=== PATIENT | female | born 1950 | race Caucasian/White ===

== ENCOUNTER → 2016-06-19 | Outpatient (CLI) | payer OTHER, MEDICAID | LOC: FIMAGING 08:32 | PROVIDERS: ATTEND Neurological Surgery | DX: Z09 Encounter for follow-up examination after completed treatment for conditions other than malignant neoplasm (principal); Z98.1 Arthrodesis status ==

== ENCOUNTER 2016-08-30 11:58 | Day surgery (SDC) | payer OTHER, MEDICAID ==
[~2016-08-30 11:58] MED LIST: NS 1,000 ML IV SCH
[2016-08-30] MEDS ORDERED: fentaNYL 100 MCG/2 ML INJ ONE (14:05)
[2016-08-30] MEDS ORDERED: MIDAZOLAM 2 MG/2 ML VIAL ONE (14:07)
[2016-08-30] MEDS ORDERED: IOPAMIDOL (ISOVUE-M 300) 15 ML VIAL ONE (14:19)
[2016-08-30] MEDS ORDERED: TRIAMCINOLONE ACETONIDE 200 MG/5 ML MDV IM ONE (14:20)
[2016-08-30] MEDS ORDERED: ONDANSETRON DISINTEGRATING 4 MG TAB PO PRN (15:20)
[2016-08-30] MEDS ORDERED: ONDANSETRON 4 MG/2 ML VIAL IVP PRN (15:21)
== END 2016-08-30 15:45 | disposition home or self-care (01) ==
LOC: FIMAGING 11:58
PROVIDERS: ATTEND Neurological Surgery
DX: M47.12 Other spondylosis with myelopathy, cervical region (principal); M48.02 Spinal stenosis, cervical region; M54.12 Radiculopathy, cervical region; M51.26 Other intervertebral disc displacement, lumbar region; M48.06 Spinal stenosis, lumbar region; M43.26 Fusion of spine, lumbar region; M43.22 Fusion of spine, cervical region
CPT/HCPCS: J2250; J3010; J3301; Q9967

== ENCOUNTER 2017-02-12 11:09 | Inpatient (IN) | payer OTHER, MEDICAID ==
[2017-02-12] MEDS ORDERED: fentaNYL 100 MCG/2 ML INJ IVP ONE (12:03)
--- NOTE | 2017-02-12 12:40 | EDPHY ---
H & P Time Seen by Provider: 02/12/17 12:39 HPI/ROS: Chief complaint. Knee injury HPI. Patient is a 66-year-old female who tripped and fell at home. She was moving her computer from bedroom to the living room and tripped on the rug. She fell striking her left elbow but twisted her right leg. She fell and was unable to get up. Unable to stand. Hurts to move her right leg especially around her right knee. Some right hip pain as well. She denies hitting her head or having any neck pain, chest pain, shortness of breath, abdominal pain. Slight discomfort to her low back. ROS Constitutional. no fever/chills, no weakness Eyes. no problems with vision ENT. no sore throat, no nasal drainage Cardiovascular. no chest pain Respiratory. no shortness of breath, no cough Abdominal. no abdominal pain, no nausea/vomiting, no diarrhea . no problems urinating MS. low back, right hip, right knee pain Skin. no rash Lymph. no swollen glands Neuro. Cannot walk or stand Past Medical/Surgical History: Past medical history significant for [place], hypertension, dyslipidemia, COPD, depression, obesity, neck and back fusion. Social History: Lives alone. Nonsmoker. No alcohol Smoking Status: Former smoker Physical Exam: General Appearance: Alert well-developed female moderate distress vital signs are stable Eyes: Pupils equal and round no pallor or injection. ENT, Mouth: Mucous membranes are moist. Respiratory: There are no retractions, lungs are clear to auscultation. Cardiovascular: Regular rate and rhythm. Gastrointestinal: Abdomen is soft and nontender, no masses, bowel sounds normal. Neurological: Awake and alert, sensory and motor exams grossly normal. Skin: Warm and dry, no rashes. Musculoskeletal: Neck is supple nontender. Extremities pain to palpation both right hip and right knee. Increased pain with gentle range of motion about the right hip. Slight shortening of the right lower extremity with inward rotation. Dorsalis pedis posterior pulses normal. Sensation normal Psychiatric: Patient is oriented X 3, there is no agitation. Constitutional: Initial Vital Signs Temperature (C) 36.5 C 02/12/17 11:12 Heart Rate 63 02/12/17 11:12 Respiratory Rate 14 02/12/17 11:12 Blood Pressure 124/59 H 02/12/17 11:12 O2 Sat (%) 90 L 02/12/17 11:12 O2 Delivery Mode Room Air Allergies/Adverse Reactions: No Known Allergies Allergy (Verified 02/12/17 11:24) Home Medications: Medication Instructions Recorded Hydrochlorothiazide [HCTZ (*)] 25 mg PO DAILY 06/22/14 Lisinopril [Zestril 20 mg (*)] 20 mg PO DAILY 06/22/14 PARoxetine HCL [Paroxetine HCl] 40 mg PO DAILY 06/22/14 metFORMIN HCL [Glucophage 500 mg 500 mg PO DAILY 06/22/14 (*)] GABAPENTIN 600 mg PO TID 08/24/16 Tizanidine HCl 4 mg PO TID 08/24/16 Medical Decision Making - Diagnostics EKG Interpretation: EKG interpreted by me shows normal sinus rhythm normal interval. Left axis deviation with left anterior fascicular block. QRS otherwise normal. No significant ST elevation or depression. No arrhythmia. The rate is 94. Imaging Results: Imaging Impressions Knee X-Ray 02/12/17 11:29 Impression: Comminuted displaced intra-articular fracture of both the medial and lateral tibial plateau, as above. Comminuted fracture proximal fibular head. Moderate suprapatellar joint effusion. Hip X-Ray 02/12/17 11:32 Impression: No definite acute fracture although limited exam. Chest X-Ray 02/12/17 13:02 Impression: No evidence for acute cardiopulmonary abnormality. Extremity CT 02/12/17 13:02 Impression: Comminuted, displaced, and depressed intraarticular fracture of the medial and lateral tibial plateau, as above. X-ray right hip and right knee reviewed by me and the right hip appears normal. We can see hardware on the lumbar spine which appears normal. Right knee shows a comminuted, displaced intra-articular fracture of both the medial and lateral tibial plateau. Also comminuted fracture of the fibular head. Procedures: Re-evaluation at 1:00 p.m.. Patient had a cup of coffee at 6:00 a.m. and no food today. She is advised to remain NPO. IV normal saline. Pain control is adequate currently ED Course/Re-evaluation: On re-evaluation patient is stable and pain is controlled. She and I discussed imaging study results, treatment plan including need for surgery. She expresses understanding and agreement I discussed and consulted the case with Dr. Bay, orthopedics who will see the patient this afternoon. I consulted and discussed the case with Dr. laughlin, hospitalist, who agrees to the admission Patient is placed in a right knee immobilizer. Post splint application shows good anatomic position and distal motor vascular sensitivity to be intact. Differential Diagnosis: I have considered fracture, dislocation of hip and knee. I have also considered injury to the lumbar spine. Patient has closed comminuted tibia and fibula fracture requiring surgery - Data Points Medications Given: Discontinued Medications Fentanyl (Sublimaze) 100 mcg IVP EDNOW ONE Stop: 02/12/17 12:04 Last Admin: 02/12/17 12:06 Dose: 100 mcg Hydromorphone HCl (Dilaudid) 1 mg IVP EDNOW ONE Stop: 02/12/17 13:49 Last Admin: 02/12/17 13:54 Dose: 1 mg Sodium Chloride (Ns) 1,000 mls @ 0 mls/hr IV EDNOW ONE; Wide Open PRN Reason: Protocol Stop: 02/12/17 13:03 Last Admin: 02/12/17 13:55 Dose: 1,000 mls Departure - Departure Disposition: [facility] In[facility] Acute Clinical Impression: Tibial plateau fracture, right Qualifiers: Encounter type: initial encounter Fracture type: closed Qualified Code(s): S82.141A - Displaced bicondylar fracture of right tibia, initial encounter for closed fracture Condition: Good
[2017-02-12] MEDS ORDERED: NS 1,000 ML IV ONE (13:02)
[2017-02-12] MEDS ORDERED: ONDANSETRON DISINTEGRATING 4 MG TAB PO PRN (13:41)
[2017-02-12] MEDS ORDERED: ONDANSETRON 4 MG/2 ML VIAL IVP PRN (13:41)
[2017-02-12] MEDS ORDERED: HYDROmorphONE/DILAUDID 2 MG/ML INJ IVP ONE (13:48)
--- NOTE | 2017-02-12 14:05 | CPEKG ---
Heart Rate: 94 RR Interval: 638 P-R Interval: 160 QRSD Interval: 86 QT Interval: 356 QTC Interval: 446 P Meridian: 30 QRS Meridian: -44 T Wave Meridian: 9 EKG Severity - ABNORMAL ECG - EKG Impression: SINUS RHYTHM EKG Impression: LEFT ANTERIOR FASCICULAR BLOCK EKG Impression: BORDERLINE R WAVE PROGRESSION, ANTERIOR LEADS Electronically Signed By: Jere Barillas 12-Feb-2017 14:43:57
[2017-02-12 14:06] LABS: % IMMATURE GRANULYOCYTES 0.5 % (0.0-1.1); ABSOLUTE IMMATURE GRANULOCYTES 0.08 10^3/uL (0.00-0.10); ADD DIFF? NO; ADD MORPH? NO; ADD SCAN? NO; ATYPICAL LYMPHOCYTE FLAG 0 (0-99); FRAGMENT RBC FLAG 0 (0-99); HEMATOCRIT 40.8 % (38.0-47.0); HEMOGLOBIN 13.8 g/dL (12.6-16.3); LEFT SHIFT FLG 0 (0-99); LIPEMIA HEMOLYSIS FLAG 90 (0-99); MEAN CELL HEMOGLOBIN CONCENTR. 33.8 g/dL (32.4-36.7); MEAN CELL VOLUME 94.7 fL (81.5-99.8); MEAN PLATELET VOLUME 10.3 fL (8.7-11.7); PLATELET CLUMPS FLAG 20 (0-99); PLATELET COUNT 313 10^3/uL (150-400); RED BLOOD CELL COUNT 4.31 10^6/uL (4.18-5.33); RED CELL DISTRIBUTION WIDTH 13.1 % (11.5-15.2)
[2017-02-12 14:15] LABS: INR 0.96 (0.83-1.16)
[2017-02-12 14:20] LABS: ANION GAP 15 mEq/L (8-16); CALCIUM 9.9 mg/dL (8.5-10.4); CARBON DIOXIDE 22 mEq/l (22-31); CHLORIDE 102 mEq/L (97-110); GLOMERULAR FILTRATION RATE 55; GLUCOSE 106 mg/dL (70-100); POTASSIUM 4.3 mEq/L (3.5-5.2); SODIUM 139 mEq/L (134-144)
--- NOTE | 2017-02-12 14:53 | GHP ---
[f rep st] HISTORY AND PHYSICAL DATE OF ADMISSION: 02/12/2017 CHIEF COMPLAINT: Right knee pain as well as bilateral low back pain. HISTORY OF PRESENT ILLNESS: The patient is a 66-year-old female who has a past medical history of IN approximately 6 years ago, hypertension, dyslipidemia, COPD and spinal stenosis; who presented to the emergency room after sustaining a fall while at home. She was moving her computer from her bedroom to the living room and tripped on the rug. She fell, hitting her left elbow, but twisted her right leg and at that time and was unable to get up. She is also complaining of some low back pain and feels best while lying flat. She denies any chest pain, any changes in her vision. She denies any shortness of breath. Her appetite is good. She states that she has had weight gain since having back surgery. She denies any changes in her bowel movements; and denies any frequency, hesitancy, urgency with urination. Her main complaint during my evaluation is right knee pain and then her low back area is aching. PAST MEDICAL HISTORY: 1. History of a myocardial infarction approximately 6-7 years old, that she describes as a small IN. 2. Hypertension. 3. Dyslipidemia. 4. COPD. 5. Depression. 6. Obesity. 7. Spinal stenosis. PAST SURGICAL HISTORY: 1. Cervical fusion in 2004. 2. Low back surgery. FAMILY HISTORY: Mother from cancer at age 66. Father was an alcoholic, he of complications of pneumonia in his 80s. SOCIAL HISTORY: She was a former smoker and she quit 3 years ago. She continues to use Nicorette. She is a former alcoholic, she quit 16 years ago. She is currently not in a relationship. She is retired. 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 ALLERGIES: No known allergies. HOME MEDICATIONS: Metformin 500 mg daily, tizanidine 4 mg p.o. t.i.d., Paxil 40 mg daily, lisinopril 20 mg daily, hydrochlorothiazide 25 mg daily. REVIEW OF SYSTEMS: A 10-point review of system was performed and was negative, other than pertinent positives in HPI and past medical history. PHYSICAL EXAM: GENERAL: Danuta is a 66-year-old obese female, who does not appear to be in acute distress. VITAL SIGNS: Blood pressure is 124/59, heart rate is 63, respiratory rate is 14, O2 sats on room air 90%, temperature is 36.5 Celsius. EYES: Pupils are equal and reactive. EOMs are intact. No conjunctival injection noted. ENT: Normal ears. Hearing intact. NECK: Trachea is midline. CARDIOVASCULAR: She is in a regular rate and rhythm. No murmurs, rubs or gallops noted. She has distant heart sounds. CHEST: Lungs with normal respiratory effort. Clear; without wheezing, rales or rhonchi. Decreased basilar. SKIN: No rashes or ulcers. Warm, dry and intact. MUSCULOSKELETAL: She is unable to do any type of straight leg lifts on the right side. I suspect this is due to knee pain. Right knee is tender, but no increased swelling noted. She has pain to both right hip and right knee area of palpation. She has palpable pulses on both feet. PSYCHIATRIC: She is alert and oriented. Normal mood and affect. Normal judgment and insight. Normal memory. LAB DATA: Reviewed. Chemistry panel is currently pending. Coagulation is pending. CBC shows a white blood cell count of 14.99, hemoglobin of 13.8, hematocrit of 40.8, platelet count of 313. IMAGIN. Knee x-ray shows a comminuted displaced intra-articular fracture of both the medial lateral tibial plateau. She has a comminuted fracture of proximal fibular head, as well as a moderate suprapatellar joint effusion. 2. Hip x-ray shows no acute trauma. 3. Right extremity CT was performed. This showed a comminuted displaced and depressed intra-articular fracture of the medial and lateral tibial plateau. 4. EKG, which I evaluated myself, shows a sinus rhythm with a left anterior fascicular block. ASSESSMENT AND PLAN: 1. Right knee fracture; comminuted, displaced and depressed intra-articular fracture of the medial and lateral tibial plateau. Orthopedics will be called by the emergency room physician. Will make her n.p.o. at this time. ASA classification is a 2 with her obesity and her history of a myocardial infarction. Will check a troponin prior to surgery. Cardiac risk index is low. 2. Back pain due to recent fall. I have already spoken with Neurosurgery. They will evaluate her. 3. Hypertension. Will resume her home medications. 4. COPD. No signs or symptoms of exacerbation. Will need good pulmonary toileting in the post operative setting. 5. Depression. Resume Paxil. 6. Obesity. She realizes this is impacting her health. 8. Leukocytosis. Most likely an acute reaction. Will recheck labs in the morning. 9. Deep venous thrombosis prophylaxis. At this time, we will not initiate any type of medication. This can be addressed after surgery. Will order athrombic pumps. 10. Code status: Do not resuscitate. 11. Length of stay: I suspect she will require greater than a 2-midnight stay with an injury to her right knee and to her back area. /[id number]/MODL MTDD
[2017-02-12] MEDS ORDERED: LR 1,000 ML IV SCH (15:00)
[2017-02-12] MEDS ORDERED: HYDROmorphONE/DILAUDID 1 MG/ML INJ ONE (15:49)
[2017-02-12] MEDS ORDERED: HYDROmorphONE/DILAUDID 1 MG/ML INJ IVP ONE (15:51)
--- NOTE | 2017-02-12 15:52 | SOAPPROG ---
ODETTE Progress Note Assessment/Plan: Assessment: Seen and examined agree with dictation by Susan HAM Plan: 02/12/17 15:51 Objective: Vital Signs Temp Pulse Resp BP Pulse Ox 36.5 C 78 14 94/58 L 95 02/12/17 11:12 02/12/17 14:41 02/12/17 14:41 02/12/17 14:41 02/12/17 14:41 Laboratory Results 02/12/17 13:50 02/12/17 13:50 PT 13.0 SEC (12.0-15.0) 02/12/17 13:50 INR 0.96 (0.83-1.16) 02/12/17 13:50 ICD10 Worksheet Patient Problems: Problems Problem Status Onset Tibial plateau fracture, right Acute Lumbar degenerative disc disease Acute Arthrodesis status Chronic Cervical radiculitis Chronic
[2017-02-12] MEDS: HYDROmorphone HCL/NS/PF 0.4 MG/2 ML SYR IVP PRN ×2 (17:18→23:27)
[2017-02-12] MEDS: fentaNYL 100 MCG/2 ML INJ IVP PRN ×9 (18:13→22:16)
[2017-02-12] MEDS ORDERED: BUPIVACAINE 0.5% 30 ML SDV ONE (19:11)
[2017-02-12] MEDS ORDERED: BACITRACIN 50,000 UNITS/10 ML SYR IRR ONE (19:12)
[2017-02-12] MEDS ORDERED: POLYMYXIN B SULFATE 500,000 UNIT/10 ML SYR IRR ONE (19:12)
--- NOTE | 2017-02-12 19:19 | SOAPPROG ---
SOAP Progress Note Assessment/Plan: Assessment: Closed, R tibial plateau fx. Plan: To OR HAM this PM for spanning ex fix and CR. Keep NPO, ice/elevate, SCD/AGA LLE, bedrest. Cleared by med/Nsurg for surgery. Consented. See full dictation of ortho consult (done ~3pm), by ROSIE Sumner, which is currently delayed in the dictation process. Pt was seen with me upon consult request. Call has been placed to [employer]. 02/12/17 19:19 Subjective: Mechanical fall earlier today. Brought in to [facility] ER, unable to bear wt on RLE, c/o severe pain R knee. No n/t, no other significant known injuries. Objective: Vital Signs Temp Pulse Resp BP Pulse Ox 37.0 C 95 18 81/60 L 90 L 02/12/17 17:45 02/12/17 17:45 02/12/17 17:45 02/12/17 17:45 02/12/17 17:45 Laboratory Results 02/12/17 13:50 02/12/17 13:50 02/11/17 02/12/17 02/13/17 05:59 05:59 05:59 Output Total 250 Balance -250 PT 13.0 SEC (12.0-15.0) 02/12/17 13:50 INR 0.96 (0.83-1.16) 02/12/17 13:50 R knee with edema, calor, ecchymosis, no erythema. Comp's compressible, skin intact, no pain with active/passive stretch. DNVI BLEs. XR - comminuted, displaced bicondylar (Jeff V) tibial plateau fracture. ICD10 Worksheet Patient Problems: Problems Problem Status Onset Tibial plateau fracture, right Acute Lumbar degenerative disc disease Acute Arthrodesis status Chronic Cervical radiculitis Chronic
[2017-02-12] MEDS ORDERED: MIDAZOLAM 2 MG/2 ML VIAL IVP ONE (19:30)
[2017-02-12] MEDS ORDERED: ceFAZolin 2 GM/SWFI 2 GM/20 ML SYR IVP ONE (19:30)
[2017-02-12] MEDS ORDERED: ceFAZolin 2 GM/DEXTROSE 100 ML IV SCH (19:30)
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
[2017-02-12] MEDS ORDERED: PROPOFOL/EMULSION 500 MG/50 ML BOTTLE IV ONE (19:35)
[2017-02-12] MEDS ORDERED: fentaNYL 250 MCG/5 ML INJ ONE (19:40)
[2017-02-12] MEDS ORDERED: MIDAZOLAM 2 MG/2 ML VIAL ONE (20:36)
[2017-02-12] MEDS ORDERED: OXYCODONE/APAP 5/325 TAB PO PRN (21:04)
--- NOTE | 2017-02-12 21:16 | POSTOPPROG ---
Post Op Note Date of Operation: 02/12/17 Surgeon: Fletcher Bay Executive Kitchen Manager: Therese Solorzano PA-C Anesthesia: GET(General Endotracheal) Pre-op Diagnosis: right knee medial and lateral tibia plateau fracture Post-op Diagnosis: right knee medial and lateral tibia plateau fracture Indication: unstable fracture Procedure: ex-fix placement for right knee medial and lateral tibia plateau fracture Findings: right knee medial and lateral tibia plateau fracture Inf/Abcess present in the surg proc area at time of surgery?: No EBL: Minimal Complications: none Specimen(s): none
[2017-02-12] MEDS ORDERED: NALOXONE HCL 0.4 MG/ML INJ IVP PRN (21:20)
[2017-02-12] MEDS ORDERED: PROMETHAZINE HCL 25 MG/ML INJ IVP PRN (21:20)
[2017-02-12] MEDS ORDERED: ALBUTEROL 3 ML DEYVIAL IH PRN (21:20)
--- NOTE | 2017-02-12 21:21 | POSTANESTH ---
Post Anesthetic Evaluation Cardiovascular Status: Normal, Stable Respiratory Status: Similar to Pre-op Cond. Level of Consciousness/Mental Status: Can Participate in Eval Pain Control: Adequate, Prn Tx Ordered Nausea/Vomiting Control: Adequate, Prn Tx Ordered Complications Possibly Related to Anesthesia: None Noted
[2017-02-12] MEDS ORDERED: fentaNYL 100 MCG/2 ML INJ ONE ×2 (21:24→21:43)
[2017-02-12] MEDS: GABAPENTIN 300 MG CAP PO SCH (23:18)
[2017-02-12] MEDS: OXYCODONE/APAP 5/325 TAB PO PRN (23:18)
--- NOTE | 2017-02-13 01:19 | GCON ---
[f rep st] CONSULTATION CONSULTATION/HISTORY AND PHYSICAL DATE OF CONSULTATION: 02/12/2017 CHIEF COMPLAINTS: 1. Fall. 2. Right knee injury. 3. Low back pain with history of lumbar fusion. Patient was seen in the emergency department in room 25 on 02/12/2017 at 1408. HISTORY OF PRESENT ILLNESS: The patient is a 66-year-old female, who is known to our practice for both cervical and lumbar fusion. Today she was at home when she was trying to put her computer back on a table, she tripped and fell. She was moving her computer from a bedroom to a living room. She tripped on a rug. She fell, striking her left elbow and twisting her right leg. She fell and was unable to get up. She was able to crawl across the floor and get to her phone and called 911. She was brought into the emergency department for evaluation. She was complaining of some achiness in her lower back. She had some right hip pain as well as right knee pain. She denies striking her head. She has no neck pain. No chest pain. No shortness of breath. No abdominal complaints. She denies any radicular symptoms in her left leg. She has isolated left knee pain that radiates to the mid thigh and down to the mid calf. She has no numbness or tingling in her toes. No loss of bowel or bladder control. No saddle numbness. No numbness in her groin. REVIEW OF SYSTEMS: 10-point review of systems done in conjunction with above, noted for the following: No headache. No diplopia. No blurred vision. No loss of visual field. No hearing loss, tinnitus, or vertigo. PULMONARY: No cough, sputum production, hemoptysis, dyspnea, or pleuritic chest pain. CARDIAC : No chest pain or pressure. No palpitations. GI: No weight loss or gain. No nausea, vomiting, or diarrhea. : No dysuria or hematuria, nocturnal frequency or urgency. NEURO: Patient denies any dizziness, syncope, seizures, vertigo, paresthesias, or weakness. No psychiatric. No suicidality or homicidality. PAST MEDICAL HISTORY: Significant for the followin. NM. 2. Hypertension. 3. Dyslipidemia. 4. COPD. 5. Depression. 6. Obesity. 7. Cervical and lumbar spine fusion with Dr. Reed. PAST SURGICAL HISTORY: See above. MEDICATIONS: Please see med reconciliation form. Prior medications listed per report from the emergency department show hydrochlorothiazide 25 mg p.o. daily, Zestril 20 mg p.o. daily, paroxetine 40 mg p.o. daily, metformin 500 mg p.o. daily, gabapentin 600 mg p.o. t.i.d., tizanidine 4 mg p.o. t.i.d. ALLERGIES: No known drug allergies. FAMILY HISTORY: Reviewed and noncontributory. SOCIAL HISTORY: Patient lives alone. She is a nonsmoker. No alcohol use. No risk factors for HIV or AIDS. IMMUNIZATIONS: Up-to-date. TRAVEL: No recent travel. REVIEW OF SYSTEMS: Noted above. PHYSICAL EXAMINATION: GENERAL: This is an awake, alert, oriented female, in no acute distress. VITAL SIGNS: Most recent, temperature 36.5, heart rate 63, 14 respirations, 124/59 blood pressure, and O2 sat of 90% on room air. HEENT: Head is normocephalic, atraumatic. Pupils equal, round, reactive to light. EOMIs intact. Full visual hong by confrontation. Ears are patent. Nose is patent. NECK: Soft and supple. No midline tenderness. Full range of motion in flexion, extension, lateral bending, rotation. RESPIRATORY AND CARDIAC: Deferred. ABDOMEN: Soft, nontender. No peritoneal signs. AND RECTAL: Deferred. NEURO: Patient is awake, alert, oriented to name, place, location, date, time, and situation. Memory is intact to immediate, past, and current events. Speech: No aphasia dysarthria or dysphonia. Cranial nerves 2 through 12 grossly intact. 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 Right side she has 5/5 strength with plantar flexion, dorsiflexion, and EHL. Knee extension, knee flexion, and iliopsoas was not tested due to nature of comminuted tibia fracture of the right leg. Sensation is grossly intact to light touch throughout all dermatome distributions upper and lower extremities. Reflexes of the biceps and triceps, as well as left Achilles and patellar were 2+ out of 4, right Achilles was 2+, left patellar was not tested due to nature of injury. Her compartments are soft bilaterally. She has no numbness or tingling. She has good sensation and her color is good with cap refill less than 2 seconds in bilateral lower extremities. DIAGNOSTIC STUDIES: Knee x-rays as well as extremity CT of the right knee shows a comminuted, displaced, depressed, intra-articular fracture of medial and lateral tibial plateau. X-rays of the right hip and right knee showed no fracture of the hip itself. Pending x-rays of the lumbar spine. IMPRESSION: 1. Fall with comminuted right tibial plateau fracture, proximal fibula fracture. 2. Achy low back pain, mild in nature, with history of lumbar fusion. 3. History of cervical fusion with no neck pain or upper extremity symptoms. PLAN AND DISCUSSION: The patient is a 66-year-old female who tripped and fell, suffered a comminuted tibial plateau fracture. She was seen in the emergency department at 1408 by myself and neurosurgical services. We ordered some x- rays of the lumbar spine. Attempt to get those today. She has no radicular pain in the left leg. Her pain is isolated to her right knee. She has no numbness, tingling in the distal foot or weakness. Her compartments at this time are soft. Orthopedics was evaluating the patient as well, and likely the patient will need surgery, possibly an external fixation. Will leave this up to Dr. Bay and his team. We will order some x-rays of the lumbar spine to check her postop fusion, and will continue to follow her. All questions and concerns were answered. Patient understands and agrees. /[id number]/MODL MTDD
[2017-02-13] MEDS: OXYCODONE/APAP 5/325 TAB PO PRN ×2 (03:35→14:06)
[2017-02-13] MEDS: ceFAZolin 2 GM/DEXTROSE 100 ML IV SCH ×2 (03:35→12:11)
[2017-02-13] MEDS: HYDROmorphone HCL/NS/PF 0.4 MG/2 ML SYR IVP PRN ×2 (05:32→12:55)
[2017-02-13 05:52] LABS: % IMMATURE GRANULYOCYTES 0.4 % (0.0-1.1); ABSOLUTE IMMATURE GRANULOCYTES 0.04 10^3/uL (0.00-0.10); ADD DIFF? NO; ADD MORPH? NO; ADD SCAN? NO; ATYPICAL LYMPHOCYTE FLAG 0 (0-99); FRAGMENT RBC FLAG 0 (0-99); HEMATOCRIT 33.5 % (38.0-47.0); HEMOGLOBIN 10.8 g/dL (12.6-16.3); LEFT SHIFT FLG 0 (0-99); LIPEMIA HEMOLYSIS FLAG 80 (0-99); MEAN CELL HEMOGLOBIN 31.2 pg (27.9-34.1); MEAN CELL HEMOGLOBIN CONCENTR. 32.2 g/dL (32.4-36.7); MEAN CELL VOLUME 96.8 fL (81.5-99.8); MEAN PLATELET VOLUME 10.5 fL (8.7-11.7); PLATELET CLUMPS FLAG 10 (0-99); PLATELET COUNT 258 10^3/uL (150-400); RED BLOOD CELL COUNT 3.46 10^6/uL (4.18-5.33); RED CELL DISTRIBUTION WIDTH 13.4 % (11.5-15.2)
--- NOTE | 2017-02-13 05:56 | GCON ---
[f rep st] CONSULTATION CHIEF COMPLAINT: Right knee injury. HISTORY OF PRESENT ILLNESS: The patient is a 66-year-old female who was moving her computer from her bedroom to her living room and tripped on a rug and fell, landing on her right knee. She states that she was unable to get up and had to crawl to her phone. She states that she has significant pain in her right knee with inability to flex or extend her knee. She also notes some right hip pain on the outside of her right side and also initially fell on her left elbow that is asymptomatic at this time. Patient does have a history of cervical and lumbar fusions done in 2014. She states that she does have slight discomfort in her lower back, no numbness or tingling in either upper or lower extremity. No other known injuries. Last PO was coffee at 6am. PAST MEDICAL HISTORY: History of IL about 6-7 years ago, hypertension, dyslipidemia, COPD, depression, morbid obesity, spinal stenosis. PAST SURGICAL HISTORY: Cervical fusion done in June 2014 and lumbar fusion done in October 2014. MEDICATIONS: Metformin 700 mg daily, HCTZ 25 mg daily, lisinopril 20 mg daily, paroxetine 40 mg daily, gabapentin 600 mg 3 times a day, and tizanidine 4 mg 3 times a day. ALLERGIES: No known drug allergies. FAMILY HISTORY: Mother from cancer at 66. Father was an alcoholic and of complications of pneumonia in 1979. SOCIAL HISTORY: She was a former cigarette smoker and quit about 3 years ago. She continues to use Nicorette. She was a former alcoholic and quit about 16 years ago. 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 REVIEW OF SYSTEMS: A 10-point review was performed and negative for any other complaints, concerns or history. PHYSICAL EXAMINATION: GENERAL: Pleasant, NAD. HEENT: NC/AT, EOMI, PERRLA. Ears and nares patent without discharge. Oropharynx is clear. NECK: Nontender to palpation, full range of motion without pain. Negative Lhermitte' s and Spurling's. MUSCULOSKELETAL: On exam of the right lower extremity, there is significant edema present throughout the right knee and into her right proximal calf and lower leg. There is no erythema, ecchymosis, or color present. She does have tenderness to palpation over the medial and lateral aspect of her proximal tibia. Her calf is compressible and nontender to palpation. No pain with passive stretch. Negative Homans. She has normal sensation to light touch in the right lower extremity, ankle DF/PF and toe wiggle intact. Distal pulse present in the right lower extremity. DNVI BLEs. SKIN: Warm and dry, intact. NEUROLOGIC: Nonfocal. No deficits noted. C5-T1 and L2-S1 intact. DTRs 1+ BUE's, deferred on BLE's. PSYCHIATRIC: Alert and oriented x3. Appropriate mood and affect. RADIOGRAPH: X-rays and a CT scan of the right knee were done and show a comminuted, displaced and depressed intra-articular fracture of the medial and lateral tibial plateau (Schatzker V). IMPRESSION: Right knee closed medial and lateral tibial plateau fractures, no sign of compartment syndrome at this time. PLAN: Patient was seen and examined in conjunction with Dr Bay. Dr Bay has recommended provisional stabilization and reduction with a spanning ex fix on her right lower extremity to stabilize the tibial plateau fracture. Risks, benefits, and alternatives were explained to the patient and consent was obtained by Dr. Bay to go forward with this operation on her right lower extremity as soon as she is cleared by medicine for surgery. Continue NPO. Nonweightbearing on the right lower extremity in knee immobilizer , bedrest, ice, elevation. All questions were answered and she is very happy with the care received and plan above. /[id number]/MODL MTDD
[2017-02-13 06:05] LABS: ANION GAP 13 mEq/L (8-16); CALCIUM 8.8 mg/dL (8.5-10.4); CARBON DIOXIDE 24 mEq/l (22-31); CHLORIDE 104 mEq/L (97-110); CREATININE 1.1 mg/dL (0.6-1.0); GLOMERULAR FILTRATION RATE 50; GLUCOSE 148 mg/dL (70-100); POTASSIUM 4.8 mEq/L (3.5-5.2); SODIUM 141 mEq/L (134-144)
--- NOTE | 2017-02-13 06:50 | GOP ---
[f rep st] OPERATIVE REPORT DATE OF OPERATION: 02/12/2017 SURGEON: Fletcher Bay MD FUSION ANALYST: ROSIE Sumner. ANESTHESIA: General with Dr. Mcginnis. PREOPERATIVE DIAGNOSIS: Right tibial plateau bicondylar, closed fractures. POSTOPERATIVE DIAGNOSIS: Right tibial plateau bicondylar, closed fractures. PROCEDURE PERFORMED: Application of right knee spanning external fixator with a closed reduction maneuver. FINDINGS: Comminuted and depressed (Schatzker V) right tibial plateau fracture including significant depression of the lateral tibial plateau segment and to a lesser degree depression of the medial tibial plateau. There was significant comminution extending into the tibial eminence region and ACL insertion. Proximal tibia and leg compartments were edematous but compressible, no signs of compartment syndrome during her procedure. SPECIMENS: None. ESTIMATED BLOOD LOSS: Minimal. INDICATIONS: This is a 66-year-old female who suffered a mechanical fall earlier today. She was brought into the [facility] Emergency Department where she was found to have a right tibial plateau fracture. I was consulted as the on-call orthopedic surgeon. Due to the bicondylar Schatzker 5 nature of this fracture as well as her significant swelling, spanning external fixator was recommended. The risks, benefits, and alternatives were defined to the patient. She understood that this was a temporizing measure to allow for her swelling to subside prior to definitive open reduction, internal fixation surgery with dual incisions. The risks, benefits and alternatives were discussed, as well as all questions were answered. She provided a signed witnessed informed consent which was placed in the chart. All of her questions were answered prior to surgery. DESCRIPTION OF PROCEDURE: The patient was identified in the preoperative holding area and her right knee was signed and designated as the operative site. The patient was informed in left lower extremity AGA hose and SCDs. She was treated with 2 g of IV prophylactic cefazolin per protocol. She was taken back to the operating room, placed supine on the OR table and general anesthesia was obtained. The upper extremities were placed on well-padded arm boards. Left lower extremity was placed in a well-padded OR table, right lower extremity was prepped and draped in the usual sterile manner. Large C-arm device was prepped and draped and used during surgery for confirmation of reduction as well as hardware positioning. Proximally with 2 stab incisions through her dermis over the anterolateral femur and distally with 2 stab incisions over the anterior tibial crest, the procedure was performed. In each case, a #15 blade was used to make approximately 8 mm incision in the appropriate location. Spreading down to bone , a small mosquito clamp was utilized at each location. Then, using the 6 hole clamps and drill guides, self-tapping half pins were placed x2 in the femur and x2 in the tibia. These were advanced by hand to engage the far cortices at all 4 locations. Next, the clamps were tightened down to the half pins after the sheaths were removed. The frame was then created in a double chevron or ibeth type multiplanar construct for appropriate fixation. I performed a reduction maneuver with traction on the tibia. A large C-arm was used to confirm appropriate alignment on both AP and lateral imaging. The frame was then tightened with standard wrenches and finalized images were taken and printed. The percutaneous incisions were then wrapped with standard postoperative sterile surgical dressings. No new circumferential dressings whatsoever around the upper thigh or lower leg were utilized. Once this was completed, the anesthesia service took over to wake the patient up. TOURNIQUET TIME: None. DRAINS: None. IMPLANTS: Synthes large spanning external fixator equipment. Ibeth shaped construct with three-dimensional, multiplanar orientation utilized. COMPLICATIONS: None. DISPOSITION: The patient was extubated and transferred to PACU in stable condition. She was set up for a CT scan of the right tibial plateau with sagittal, coronal, and 3D reconstructions in the postoperative setting for better delineation of all fracture fragments. Strict NWB, ice, elevation RLE. /[id number]/MODL CHARLAD
--- NOTE | 2017-02-13 07:30 | NEUSURGPN ---
Assessment/Plan: Assessment: 66 yo female that is s/p fall with right tib/fib fracture and some achey back pain with hx of L spine fusion Plan: -s/p fall with mild 1-2/10 lower back pain -xrays of the L spine show post op changes s/p L spine fusion-no acute fracture -PT/OT ordered -Pt denies any right hip pain or LLE pain. She has isolated right knee pain r/ t fracture -recommend follow up with Dr Reed in the office for a recheck -warning signs given -call with any questions or concerns -will recheck in office and determine for any need for further imaging -call NS with any changes or issues -NS to s/o at this time Subjective: Awake and alert. NAD. Eating/drinking and voiding. No f/c/n/v/d. Objective: AAO x 3, PERRLA/EOMI no droop CN 2-12 grossly intact +lt touch 5/5 BUE = 5/5 LLE 5/5 Right DF/PF/EHL, right HF/IP/Q not tested due to injury Neuro Check Frequency: per routine Urinary Catheter in Place: No Catheter Insertion Date: 02/12/17 - Physician Discussed Patient with : Natasha Neurosurgery Physical Exam - Vitals, I&O, Labs I and O 02/12/17 02/13/17 02/14/17 05:59 05:59 05:59 Intake Total 2360 Output Total 745 Balance 1615 Weight 95.254 kg Intake: Oral (ml) 360 IV Intake (ml) 2000 Output: Urine (ml) 725 Catheter 475 Estimated Blood Loss (ml) 20 Emesis (ml) 0 Other: Number of Voids Catheter 1 Vital Signs Temp Pulse Resp BP Pulse Ox 37.2 C 75 18 107/55 L 94 02/13/17 03:55 02/13/17 03:55 02/13/17 03:55 02/13/17 03:55 02/13/17 03:55 Laboratory Results 02/13/17 05:25 02/13/17 05:25 ICD10 Worksheet Patient Problems: Problems Problem Status Onset Tibial plateau fracture, right Acute Lumbar degenerative disc disease Acute Arthrodesis status Chronic Cervical radiculitis Chronic
[2017-02-13] MEDS: GABAPENTIN 300 MG CAP PO SCH ×3 (09:03→22:14)
[2017-02-13] MEDS: PARoxetine HCL 20 MG TAB PO SCH (09:05)
[2017-02-13] MEDS: RIVAROXABAN 10 MG TAB PO SCH (09:06)
[2017-02-13] MEDS: LISINOPRIL 20 MG TAB PO SCH (09:08)
[2017-02-13] MEDS: HYDROCHLOROTHIAZIDE 25 MG TAB PO SCH (09:09)
--- NOTE | 2017-02-13 12:46 | PDMN ---
Medical Necessity Medical necessity: Pt meets IP criteria per [facility]; est los >2 mn for eval/tx R knee fx & bilateral low back pain r/t fall; admit for surgery; hx HTN, COPD, [place] ; per H&P & order 02/13/17
--- NOTE | 2017-02-13 13:06 | SOAPPROG ---
<Therese Solozrano - Last Filed: 02/13/17 13:17> SOAP Progress Note Assessment/Plan: Assessment: POD#1 from ex-fix placed right lower extremity for a right knee medial and lateral tibia plateau fracture Plan: NWB RLE Pin site care starting POD#2: 12/ DVT prophylaxis: Xarelto AGA's/SCD's Ice/Elevation Pain medicine prn Ortho Stable Subjective: Patient is post op day #1 from an ex-fix placement on her right lower extremity for a medial and lateral tibia plateau fracture. She states she has minimal pain that is being controlled with pain medicine. Objective: Vital Signs Temp Pulse Resp BP Pulse Ox 37.2 C 87 20 108/64 96 02/13/17 12:23 02/13/17 12:23 02/13/17 12:23 02/13/17 12:23 02/13/17 12:23 Laboratory Results 02/13/17 05:25 02/13/17 05:25 02/12/17 02/13/17 02/14/17 05:59 05:59 05:59 Intake Total 2360 Output Total 745 Balance 1615 PT 13.0 SEC (12.0-15.0) 02/12/17 13:50 INR 0.96 (0.83-1.16) 02/12/17 13:50 Physical exam of the RLE: ex-fix is in place. Pin site dressings: clean, dry and intact. Patient is able to move all 5 toes. Normal sensation to light touch in the RLE. Distal pulse present in the RLE. ICD10 Worksheet Patient Problems: Problems Problem Status Onset Tibial plateau fracture, right Acute Lumbar degenerative disc disease Acute Arthrodesis status Chronic Cervical radiculitis Chronic <Fletcher Bay - Last Filed: 02/13/17 17:10> SOAP Progress Note Assessment/Plan: Assessment: Agree with PA note. RLE doing well, comp's soft, no sign of comp syndrome, NVI, Neg David's. Fracture is out to length and appropriately aligned. Frame in good condition. Plan: Strict NWB RLE, better elevation (leg down now), mechano- & chem- prophylaxis, complete IV abx, start pin site care tomorrow. PT/OT for mob OOB and transfers. Anticipate SNF stay until definitive ORIF next week - likely Sunday. 02/13/17 17:07 Objective: Vital Signs Temp Pulse Resp BP Pulse Ox 37.2 C 87 20 108/64 96 02/13/17 12:23 02/13/17 12:23 02/13/17 12:23 02/13/17 12:23 02/13/17 12:23 Laboratory Results 02/13/17 05:25 02/13/17 05:25 02/12/17 02/13/17 02/14/17 05:59 05:59 05:59 Intake Total 2360 Output Total 745 Balance 1615 PT 13.0 SEC (12.0-15.0) 02/12/17 13:50 INR 0.96 (0.83-1.16) 02/12/17 13:50
--- NOTE | 2017-02-13 14:17 | ASMTCMCOM ---
CM Note CM Note Notes: Chart reviewed. Met with patient to review possible discharge scenarios. She is 66 year old female that normally lives alone indpendent who fell and sustained tibial plateau fracture. She currently is on bedrest wit h an external fixation device in place until swelling diminishes to a point surgery is ready to occur. She reports she tripped and fell over her carpet at home. She has a pet and lives in an apartment with multiple entry stairs. Likely will need SNF rehab. Discussed this with patient who is agreeable. Her son has been encouraged to visit with [facility] as a rehab is preferred over SNF rehab facility. CM to follow. Date Signed: 02/13/2017 02:16 PM Electronically Signed By:Johnna Murphy RN
[2017-02-13] MEDS ORDERED: BISACODYL 10 MG SUPP PR PRN (16:19)
[2017-02-13] MEDS ORDERED: LACTULOSE 20 GM/30 ML UDCUP PO PRN (16:19)
[2017-02-13] MEDS ORDERED: POLYETHYLENE GLYCOL 3350 17 GM PKT PO PRN (16:19)
[2017-02-13] MEDS ORDERED: MAGNESIUM HYDROXIDE 30 ML UDCUP PO PRN (16:19)
[2017-02-13] MEDS ORDERED: HYDROmorphONE/DILAUDID 1 MG/ML INJ IVP PRN (16:23)
--- NOTE | 2017-02-13 16:31 | HOSPPROG ---
Hospitalist Progress Note Assessment/Plan: Assessment: 66-year-old female presents with acute right tibial plateau fracture status post mechanical fall Plan: 1. Tibial plateau fracture. Acute, right, requiring urgent orthopedic evaluation by Dr. Fletcher Bay, status post external fixation -will discuss with Dr. Fletcher Bay regarding the timing of subsequent surgery -increase frequency of IV pain medication, add oral Dilaudid p.r.n. -add bowel regiment -the patient will definitely require [facility] facility and the exact despite 0 date will be dependent on the exact timing of subsequent surgery 2. Chronic lower back pain. Exacerbated by recent fall, status post neurosurgery evaluation, no indication for more advanced imaging -neurosurgery recommendations are outpatient follow-up with Dr. Lundy 3. Morbid obesity. BMI 42, increase patient's functional status and risk of worsening morbidity and/or mortality 4. Suspected atelectasis. Acute, new problem this provider, further workup indicated. Currently requiring supplemental oxygen, required up to 10 L facemask overnight, has been weaned down throughout today's day shift, most likely exacerbated by habitus -incentive spirometer -chest x-ray without any focal infiltrates on presentation, personally interpreted -if patient's oxygen requirements are not weaned down substantially tomorrow a.m. will repeat chest x-ray 5. Suspected chronic kidney disease stage 3. Baseline creatinine unknown, current creatinine 1.1 -order outside records from [facility] 6. Coronary artery disease. Chronic, continue home medications Diet. Cardiac Prophylaxis. High risk patient, Xarelto Code. Do not resuscitate Disposition. Anticipated discharge uncertain this time, dependent on surgical stabilization plan as outlined above. Subjective: Patient reports she has ongoing pain in the right lower extremity, has not moved her bowels Objective: Vital Signs Temp Pulse Resp BP Pulse Ox 37.2 C 87 20 108/64 96 02/13/17 12:23 02/13/17 12:23 02/13/17 12:23 02/13/17 12:23 02/13/17 12:23 Laboratory Results 02/13/17 05:25 02/13/17 05:25 02/12/17 02/13/17 02/14/17 05:59 05:59 05:59 Intake Total 2360 Output Total 745 Balance 1615 PT 13.0 SEC (12.0-15.0) 02/12/17 13:50 INR 0.96 (0.83-1.16) 02/12/17 13:50 - Physical Exam Constitutional: no apparent distress, chronically ill appearing, obese, uncomfortable, No not in pain (Moderate) Cardiovascular: regular rate and rhythym, no murmur, rub, or gallop (Distant heart sounds), edema (Trace bilateral lower extremity), No irregularly irregular Respiratory: reduced air movement (Bilateral bases), inspiratory crackles ( Bilateral bases), No expiratory wheeze, No bronchial breath sounds, No respiratory distress Gastrointestinal: normoactive bowel sounds, soft, non-tender abdomen, no palpable masses, No distension Musculoskeletal: other (Right lower extremity in external fixation) Neurologic: AAOx3, sensation intact bilaterally, No weakness (Motor strength 5/ 5 distal right lower extremity) Psychiatric: interacting appropriately, not anxious, not encephalopathic, thought process linear ICD10 Worksheet Patient Problems: Problems Problem Status Onset Tibial plateau fracture, right Acute Lumbar degenerative disc disease Acute Arthrodesis status Chronic Cervical radiculitis Chronic
[2017-02-13] MEDS: NICOTINE POLACRILEX 2 MG GUM B PRN (16:37)
[2017-02-13] MEDS: SENNOSIDES/DOCUSATE SODIUM TAB PO SCH ×2 (17:25→22:15)
[2017-02-13] MEDS: HYDROmorphONE/DILAUDID 2 MG TAB PO PRN ×2 (18:03→22:20)
[2017-02-13] MEDS ORDERED: NS 500 ML IV ONE (19:17)
[2017-02-14 05:35] LABS: ANION GAP 13 mEq/L (8-16); CALCIUM 8.9 mg/dL (8.5-10.4); CARBON DIOXIDE 25 mEq/l (22-31); CHLORIDE 102 mEq/L (97-110); CREATININE 1.2 mg/dL (0.6-1.0); GLOMERULAR FILTRATION RATE 45; GLUCOSE 129 mg/dL (70-100); POTASSIUM 4.4 mEq/L (3.5-5.2); SODIUM 140 mEq/L (134-144)
[2017-02-14] MEDS: metFORMIN HCL 500 MG TAB PO SCH (08:15)
[2017-02-14] MEDS: LISINOPRIL 20 MG TAB PO SCH (08:15)
[2017-02-14] MEDS: GABAPENTIN 300 MG CAP PO SCH ×3 (08:15→23:04)
[2017-02-14] MEDS: PARoxetine HCL 20 MG TAB PO SCH (08:15)
[2017-02-14] MEDS: HYDROCHLOROTHIAZIDE 25 MG TAB PO SCH (08:15)
[2017-02-14] MEDS: RIVAROXABAN 10 MG TAB PO SCH (08:15)
[2017-02-14] MEDS: SENNOSIDES/DOCUSATE SODIUM TAB PO SCH ×2 (08:16→23:05)
[2017-02-14] MEDS: ACETAMINOPHEN 325 MG TAB PO PRN ×2 (08:21→17:19)
[2017-02-14] MEDS ORDERED: HYDROGEN PEROXIDE 236 ML BOTTLE TP SCH (09:00)
[2017-02-14] MEDS ORDERED: Herbals/Supplements -Info Only PO SCH (09:00)
--- NOTE | 2017-02-14 11:44 | SOAPPROG ---
SOAP Progress Note Assessment/Plan: Assessment: POD#2 from ex-fix placed right lower extremity for a right knee medial and lateral tibia plateau fracture Plan: NWB RLE Pin site care daily DVT prophylaxis: Xarelto daily until ORIF right tibia plateau surgery AGA's/SCD's Ice/Elevation Pain medicine prn Plan for follow up with Dr. Bay in the office on 02/20. Patient will likely be scheduled for ORIF right medial and lateral tibia plateau fractures on Sunday02/21/17. Ortho Stable Subjective: Patient is post op day #2 from an ex-fix placement on her right lower extremity for a medial and lateral tibia plateau fracture. She states her pain is being controlled with pain medicine. Objective: Vital Signs Temp Pulse Resp BP Pulse Ox 36.9 C 111 H 18 113/54 L 88 L 02/14/17 08:04 02/14/17 08:04 02/14/17 08:04 02/14/17 08:15 02/14/17 08:04 Laboratory Results 02/13/17 05:25 02/14/17 04:00 02/13/17 02/14/17 02/15/17 05:59 05:59 05:59 Intake Total 2360 1200 Output Total 745 925 Balance 1615 275 PT 13.0 SEC (12.0-15.0) 02/12/17 13:50 INR 0.96 (0.83-1.16) 02/12/17 13:50 Physical exam of the RLE: ex-fix is in place. Pin site dressings: clean and intact. The tibia pin sites do have some bleeding on the dressing. Pin sites are without erythema. Patient is able to move all 5 toes. Normal sensation to light touch in the RLE. Distal pulse present in the RLE. ICD10 Worksheet Patient Problems: Problems Problem Status Onset Tibial plateau fracture, right Acute Lumbar degenerative disc disease Acute Arthrodesis status Chronic Cervical radiculitis Chronic
[2017-02-14] MEDS: HYDROmorphONE/DILAUDID 2 MG TAB PO PRN (12:35)
--- NOTE | 2017-02-14 14:08 | ASMTCMCOM ---
CM Note CM Note Notes: Spoke with patient about discharge planning. She is interested in [facility]. I sent referrals, and spoke to her son who will review them online. Current plan is for patient to discharge to SNF tomorrow, then return to [facility] to have ORIF with Dr Bay 02/21. Post-operatively, she will return to SNF. CM will follow. Date Signed: 02/14/2017 02:07 PM Electronically Signed By:Vivi Gutierres RN
--- NOTE | 2017-02-14 16:54 | HOSPPROG ---
Hospitalist Progress Note Assessment/Plan: Assessment: 66-year-old female presents with acute right tibial plateau fracture status post mechanical fall c/b acute hypotension Plan: 1. Tibial plateau fracture. Acute, right, requiring urgent orthopedic evaluation by Dr. Fletcher Bay, status post external fixation -d/w Dr. Bay, recommends surgery on 02/21 and possible SNF between -stable on PO/IV dilaudid -added bowel regiment 2. Chronic lower back pain. Exacerbated by recent fall, status post neurosurgery evaluation, no indication for more advanced imaging -neurosurgery recommendations are outpatient follow-up with Dr. Lundy 3. Morbid obesity. BMI 42, increase patient's functional status and risk of worsening morbidity and/or mortality 4. Suspected atelectasis. Acute, present on CXR (personally interpreted), cont supp o2 and IS 5. Suspected chronic kidney disease stage 3. Baseline creatinine unknown, current creatinine rising to 1.2, monitor for e/o PINA w/ repeat BMP -order outside records from [facility] 6. Coronary artery disease. Chronic, continue home medications 7. Hypotension. Acute, new problem, further w/u indicated. Tachycardic and intermittently low BP, unclear if related to pain vs. hypovolemia -check vLactic, CBC (bleeding at leg site), BMP -give 1L LR over 2 hrs and monitor -unlikely to be DVT this rapid after immobilization, but if o2 requirements increasing, get CTA Diet. Cardiac Prophylaxis. High risk patient, Xarelto Code. Do not resuscitate Disposition. Anticipated discharge uncertain this time, dependent on surgical stabilization plan as outlined above. Subjective: worsening bleeding at leg, pain in R hip Objective: Vital Signs Temp Pulse Resp BP Pulse Ox 37.4 C 104 H 16 99/63 L 88 L 02/14/17 16:00 02/14/17 16:00 02/14/17 16:00 02/14/17 16:00 02/14/17 16:00 Laboratory Results 02/13/17 05:25 02/14/17 04:00 02/13/17 02/14/17 02/15/17 05:59 05:59 05:59 Intake Total 2360 1200 Output Total 745 925 550 Balance 1615 275 -550 PT 13.0 SEC (12.0-15.0) 02/12/17 13:50 INR 0.96 (0.83-1.16) 02/12/17 13:50 - Physical Exam Constitutional: chronically ill appearing, obese, uncomfortable, No not in pain (moderate) Cardiovascular: tachycardia, edema (trace bilat LE), No systolic murmur, No irregularly irregular Respiratory: inspiratory crackles (bilat bases), No reduced air movement, No expiratory wheeze, No bronchial breath sounds, No respiratory distress Gastrointestinal: normoactive bowel sounds, soft, non-tender abdomen, no palpable masses, No distension Neurologic: AAOx3, sensation intact bilaterally, No weakness (motor 5/5 plantar/ dorsi-flexion) Psychiatric: interacting appropriately, not anxious, not encephalopathic, thought process linear ICD10 Worksheet Patient Problems: Problems Problem Status Onset Cervical radiculitis Chronic Arthrodesis status Chronic Lumbar degenerative disc disease Acute Tibial plateau fracture, right Acute
[2017-02-14] MEDS ORDERED: LR 1,000 ML IV SCH (17:00)
[2017-02-14 17:17] LABS: % IMMATURE GRANULYOCYTES 0.4 % (0.0-1.1); ABSOLUTE IMMATURE GRANULOCYTES 0.05 10^3/uL (0.00-0.10); ADD DIFF? NO; ADD MORPH? NO; ADD SCAN? NO; ATYPICAL LYMPHOCYTE FLAG 0 (0-99); FRAGMENT RBC FLAG 0 (0-99); HEMATOCRIT 33.5 % (38.0-47.0); HEMOGLOBIN 10.7 g/dL (12.6-16.3); LEFT SHIFT FLG 10 (0-99); LIPEMIA HEMOLYSIS FLAG 80 (0-99); MEAN CELL HEMOGLOBIN 30.8 pg (27.9-34.1); MEAN CELL HEMOGLOBIN CONCENTR. 31.9 g/dL (32.4-36.7); MEAN CELL VOLUME 96.5 fL (81.5-99.8); MEAN PLATELET VOLUME 10.4 fL (8.7-11.7); PLATELET CLUMPS FLAG 0 (0-99); PLATELET COUNT 232 10^3/uL (150-400); RED BLOOD CELL COUNT 3.47 10^6/uL (4.18-5.33); RED CELL DISTRIBUTION WIDTH 13.4 % (11.5-15.2)
[2017-02-14 17:22] LABS: ANION GAP 10 mEq/L (8-16); CALCIUM 9.1 mg/dL (8.5-10.4); CARBON DIOXIDE 29 mEq/l (22-31); CHLORIDE 102 mEq/L (97-110); GLOMERULAR FILTRATION RATE 55; GLUCOSE 126 mg/dL (70-100); POTASSIUM 4.4 mEq/L (3.5-5.2); SODIUM 141 mEq/L (134-144)
[2017-02-15] MEDS: HYDROmorphONE/DILAUDID 2 MG TAB PO PRN (06:09)
--- NOTE | 2017-02-15 07:45 | SOAPPROG ---
SOAP Progress Note Assessment/Plan: Assessment: POD#3 from ex-fix placed right lower extremity for a right knee medial and lateral tibia plateau fracture Plan: NWB RLE Pin site care daily DVT prophylaxis: Xarelto daily until ORIF right tibia plateau surgery AGA's/SCD's Ice/Elevation Pain medicine prn Plan for follow up with Dr. Bay in the office on 02/20. Patient will likely be scheduled for ORIF right medial and lateral tibia plateau fractures on Sunday02/21/17. Ortho Stable and okay for D/C from the Orthopedic Standpoint Subjective: Patient is post op day #3 from an ex-fix placement on her right lower extremity for a medial and lateral tibia plateau fracture. She reports some discomfort in her right lower extremity but the pain medicine keeps her comfortable. Objective: Vital Signs Temp Pulse Resp BP Pulse Ox 36.8 C 93 18 116/82 H 90 L 02/15/17 04:00 02/15/17 04:00 02/15/17 04:00 02/15/17 04:00 02/15/17 04:00 Laboratory Results 02/14/17 16:55 02/14/17 16:55 02/14/17 02/15/17 02/16/17 05:59 05:59 05:59 Intake Total 1200 1500 Output Total 925 700 Balance 275 800 PT 13.0 SEC (12.0-15.0) 02/12/17 13:50 INR 0.96 (0.83-1.16) 02/12/17 13:50 Physical exam of the RLE: ex-fix is in place. Pin site dressings: clean and intact. The tibia pin sites do have some bleeding on the dressing. Pin sites are without erythema. Patient is able to move all 5 toes. Normal sensation to light touch in the RLE. Distal pulse present in the RLE. ICD10 Worksheet Patient Problems: Problems Problem Status Onset Tibial plateau fracture, right Acute Lumbar degenerative disc disease Acute Arthrodesis status Chronic Cervical radiculitis Chronic
[2017-02-15] MEDS: PARoxetine HCL 20 MG TAB PO SCH (07:55)
[2017-02-15] MEDS: SENNOSIDES/DOCUSATE SODIUM TAB PO SCH ×2 (08:35→22:09)
[2017-02-15] MEDS: metFORMIN HCL 500 MG TAB PO SCH (08:35)
[2017-02-15] MEDS: RIVAROXABAN 10 MG TAB PO SCH (08:36)
[2017-02-15] MEDS: GABAPENTIN 300 MG CAP PO SCH ×3 (08:53→22:09)
[2017-02-15] MEDS: ACETAMINOPHEN 325 MG TAB PO PRN (08:54)
[2017-02-15] MEDS ORDERED: OLANZapine DISINTEGR 5 MG TAB PO PRN (09:16)
[2017-02-15] MEDS ORDERED: BISACODYL 5 MG EC TAB PO PRN (09:17)
[2017-02-15] MEDS ORDERED: MAGNESIUM CITRATE 300 ML BOTTLE PO PRN (09:17)
[2017-02-15 09:40] LABS: % IMMATURE GRANULYOCYTES 0.3 % (0.0-1.1); ABSOLUTE IMMATURE GRANULOCYTES 0.03 10^3/uL (0.00-0.10); ADD DIFF? NO; ADD MORPH? NO; ADD SCAN? NO; ATYPICAL LYMPHOCYTE FLAG 0 (0-99); FRAGMENT RBC FLAG 0 (0-99); HEMATOCRIT 30.4 % (38.0-47.0); HEMOGLOBIN 9.8 g/dL (12.6-16.3); LEFT SHIFT FLG 0 (0-99); LIPEMIA HEMOLYSIS FLAG 80 (0-99); MEAN CELL HEMOGLOBIN 30.5 pg (27.9-34.1); MEAN CELL HEMOGLOBIN CONCENTR. 32.2 g/dL (32.4-36.7); MEAN CELL VOLUME 94.7 fL (81.5-99.8); MEAN PLATELET VOLUME 10.3 fL (8.7-11.7); PLATELET CLUMPS FLAG 0 (0-99); PLATELET COUNT 228 10^3/uL (150-400); RED BLOOD CELL COUNT 3.21 10^6/uL (4.18-5.33); RED CELL DISTRIBUTION WIDTH 13.2 % (11.5-15.2)
[2017-02-15 10:04] LABS: ANION GAP 10 mEq/L (8-16); CALCIUM 9.2 mg/dL (8.5-10.4); CARBON DIOXIDE 29 mEq/l (22-31); CHLORIDE 98 mEq/L (97-110); CREATININE 0.7 mg/dL (0.6-1.0); GLOMERULAR FILTRATION RATE > 60; GLUCOSE 153 mg/dL (70-100); POTASSIUM 4.3 mEq/L (3.5-5.2); SODIUM 137 mEq/L (134-144)
--- NOTE | 2017-02-15 10:40 | ASMTCMCOM ---
CM Note CM Note Notes: Pt accepted at [facility]; spoke w pt and son who chose [facility]. Pt likely d/c Sunday or Sunday, [facility] updated. Date Signed: 02/15/2017 10:39 AM Electronically Signed By:MARILEE Kennedy
[2017-02-15] MEDS ORDERED: LR 1,000 ML IV ONE (10:55)
[2017-02-15 10:56] LABS: COLOR YELLOW; LEUKOCYTE ESTERASE,URINE NEGATIVE (NEGATIVE); NITRITE,URINE NEGATIVE (NEGATIVE)
[2017-02-15] MEDS: NICOTINE POLACRILEX 2 MG GUM B PRN (12:36)
[2017-02-15 12:46] LABS: MUCUS TRACE /lpf (NONE-1+); RBC,URINE 50-182 /hpf (0-3)
[2017-02-15 12:48] LABS: WBC,URINE NONE SEEN /hpf (0-3)
[2017-02-15] MEDS ORDERED: OLANZapine 2.5 MG TAB PO PRN (17:16)
--- NOTE | 2017-02-15 18:34 | HOSPPROG ---
Hospitalist Progress Note Assessment/Plan: Assessment: 66-year-old female presents with acute right tibial plateau fracture status post mechanical fall c/b acute hypotension and acute encephalopathy Plan: 1. Tibial plateau fracture. Acute, right, requiring urgent orthopedic evaluation by Dr. Fletcher Bay, status post external fixation -d/w Dr. Bay, recommends surgery on 02/21 and possible SNF between -adjust pain Rx to morphine given possible toxic effects of dilaudid -added bowel regiment 2. Chronic lower back pain. Exacerbated by recent fall, status post neurosurgery evaluation, no indication for more advanced imaging -neurosurgery recommendations are outpatient follow-up with Dr. Lundy 3. Morbid obesity. BMI 42, increase patient's functional status and risk of worsening morbidity and/or mortality 4. Suspected atelectasis. Acute, present on CXR, cont supp o2 and IS 5. Suspected chronic kidney disease stage 3. Baseline creatinine unknown, current creatinine rising to 1.2, monitor for e/o PINA w/ repeat BMP -order outside records from [facility] 6. Coronary artery disease. Chronic, continue home medications 7. Hypotension. Acute, recurrent today, likely 2/2 pain Rx and poor oral intake -bolus w/ LR 1L and recheck 8. Acute encephalopathy. New problem, further w/u indicated. Evidenced by global brain dysfunction characterized as hallucinations, agitation, confusion, disorientation, all of which are an acute change from her baseline per son, 2/2 toxic effects of pain Rx and disrupted sleep pattern/environment -get CBC/UA/PCT and blood cultures if elevated -hold on Abx -use zyprexa PRN for anxiety/agitation -adjust pain Rx to morphine from dilaudid -CXR w/o air space disease, personally interpreted Diet. Cardiac Prophylaxis. High risk patient, Xarelto Code. Do not resuscitate Disposition. Anticipated discharge uncertain this time, dependent on surgical stabilization plan as outlined above. Subjective: patient w/ significant agitation/hallucinations o/n and this AM Objective: Vital Signs Temp Pulse Resp BP Pulse Ox 36.9 C 88 16 113/59 L 88 L 02/15/17 15:48 02/15/17 15:48 02/15/17 15:48 02/15/17 15:48 02/15/17 15:48 Laboratory Results 02/15/17 09:30 02/15/17 09:30 02/14/17 02/15/17 02/16/17 05:59 05:59 05:59 Intake Total 1200 1500 600 Output Total 925 700 500 Balance 275 800 100 PT 13.0 SEC (12.0-15.0) 02/12/17 13:50 INR 0.96 (0.83-1.16) 02/12/17 13:50 - Physical Exam Constitutional: obese, uncomfortable (mild), No no apparent distress (moderate distress), No not in pain (mild) Cardiovascular: tachycardia, No systolic murmur, No irregularly irregular, No edema Respiratory: inspiratory crackles (bilat bases), No reduced air movement, No expiratory wheeze, No bronchial breath sounds, No respiratory distress Gastrointestinal: normoactive bowel sounds, soft, non-tender abdomen, no palpable masses, No distension Genitourinary: mcghee in urethra Neurologic: sensation intact bilaterally, CN II-XII Intact, other (AAOx2 ( person and place)), No facial droop Psychiatric: encephalopathic, anxious, agitated, other (intermittently scattered speech, redirectible) ICD10 Worksheet Patient Problems: Problems Problem Status Onset Cervical radiculitis Chronic Arthrodesis status Chronic Lumbar degenerative disc disease Acute Tibial plateau fracture, right Acute
[2017-02-15] MEDS ORDERED: MELATONIN 3 MG TAB PO SCH (21:00)
[2017-02-16] MEDS: ACETAMINOPHEN 325 MG TAB PO PRN (04:52)
--- NOTE | 2017-02-16 07:00 | SOAPPROG ---
SOAP Progress Note Assessment/Plan: Assessment/Plan: Right medial and lateral tibial plateau fracture s/p CREF of R tibial plateau fracture (external fixator in place) performed by Dr. Bay, POD #4 -Cont PT/OT, pt will remain NWB RLE -Cont to monitor pin sites daily -Cont current pain management, cont to encourage PO as tolerated -Cont to ice/elevation -Cont SCDs and TEDs for VTE mechanical prophylaxis contralaterally -Cont Xarelto for DVT prophylaxis, pt will continue on d/c, Rx placed in chart -Pt remains ok to d/c from ortho standpoint -Pt will f/u with Dr. Bay in clinic on the morning of 02/20/2017, and likely scheduled for ORIF the following day 02/16/17 06:58 Subjective: Pt seen at bedside. No complaints of significant pain at this time, although she notes she did have some discomfort overnight, but that her current pain regimen is sufficent to control her pain. She denies any taylor, f/c/n/v, cp, sob, abd pain, bilat calf pain or new onset n/t. She states she has been using ice and elevation. She states she is tolerating her diet and medications well. She has no additional concerns or complaints at this time. Objective: Vital Signs Temp Pulse Resp BP Pulse Ox 36.9 C 90 16 150/75 H 92 02/16/17 04:00 02/16/17 04:00 02/16/17 04:00 02/16/17 04:00 02/16/17 04:00 Laboratory Results 02/15/17 09:30 02/15/17 09:30 02/15/17 02/16/17 02/17/17 05:59 05:59 05:59 Intake Total 1500 2300 Output Total 700 2100 Balance 800 200 PT 13.0 SEC (12.0-15.0) 02/12/17 13:50 INR 0.96 (0.83-1.16) 02/12/17 13:50 Pt seen at bedside. A&Ox3, appropriate mood and affect, pleasant and cooperative with exam. NAD, non-toxic in appearance, VSS. Exam of the RLE reveals ex-fix in place. Pin site dressings are intact, slight shadowing noted on the distal site, however, no current drainage is noted. No significant surrounding erythema, calor, discharge or induration. Pt is able to move all her toes well, and intact to light touch sensation distally. Distal pulses are intact. Exam of the LLE reveals SCDs and TEDs in place. Post calf is NTTP, no palpable vascular cords, neg David's. DNVI BLE. ICD10 Worksheet Patient Problems: Problems Problem Status Onset Tibial plateau fracture, right Acute Lumbar degenerative disc disease Acute Arthrodesis status Chronic Cervical radiculitis Chronic
[2017-02-16] MEDS: SENNOSIDES/DOCUSATE SODIUM TAB PO SCH (08:48)
[2017-02-16] MEDS: PARoxetine HCL 20 MG TAB PO SCH (08:49)
[2017-02-16] MEDS: RIVAROXABAN 10 MG TAB PO SCH (08:50)
[2017-02-16] MEDS: GABAPENTIN 300 MG CAP PO SCH ×2 (08:50→15:03)
[2017-02-16] MEDS: metFORMIN HCL 500 MG TAB PO SCH (08:51)
[2017-02-16] MEDS: LISINOPRIL 20 MG TAB PO SCH (08:54)
[2017-02-16 09:40] LABS: % IMMATURE GRANULYOCYTES 0.4 % (0.0-1.1); ABSOLUTE IMMATURE GRANULOCYTES 0.04 10^3/uL (0.00-0.10); ADD DIFF? NO; ADD MORPH? NO; ADD SCAN? NO; ATYPICAL LYMPHOCYTE FLAG 0 (0-99); FRAGMENT RBC FLAG 0 (0-99); HEMATOCRIT 32.5 % (38.0-47.0); HEMOGLOBIN 10.7 g/dL (12.6-16.3); LEFT SHIFT FLG 0 (0-99); LIPEMIA HEMOLYSIS FLAG 80 (0-99); MEAN CELL HEMOGLOBIN 31.1 pg (27.9-34.1); MEAN CELL HEMOGLOBIN CONCENTR. 32.9 g/dL (32.4-36.7); MEAN CELL VOLUME 94.5 fL (81.5-99.8); MEAN PLATELET VOLUME 10.3 fL (8.7-11.7); PLATELET CLUMPS FLAG 20 (0-99); PLATELET COUNT 249 10^3/uL (150-400); RED BLOOD CELL COUNT 3.44 10^6/uL (4.18-5.33)
[2017-02-16] MEDS ORDERED: BISACODYL 5 MG EC TAB PO ONE (10:12)
[2017-02-16] MEDS ORDERED: MAGNESIUM CITRATE 300 ML BOTTLE PO ONE (10:12)
[2017-02-16 10:20] LABS: ALANINE AMINOTRANSFERASE 27 IU/L (9-52); ALBUMIN 3.1 g/dL (3.5-5.0); ALKALINE PHOSPHATASE 74 IU/L (38-126); ANION GAP 9 mEq/L (8-16); ASPARTATE AMINOTRANSFERASE 21 IU/L (14-46); BILIRUBIN,TOTAL 0.4 mg/dL (0.1-1.4); CALCIUM 9.4 mg/dL (8.5-10.4); CARBON DIOXIDE 31 mEq/l (22-31); CHLORIDE 99 mEq/L (97-110); CREATININE 0.7 mg/dL (0.6-1.0); GLOMERULAR FILTRATION RATE > 60; GLUCOSE 103 mg/dL (70-100); POTASSIUM 4.1 mEq/L (3.5-5.2); SODIUM 139 mEq/L (134-144); TOTAL PROTEIN 5.6 g/dL (6.3-8.2)
[2017-02-16 11:10] VITALS: RESP 16
--- NOTE | 2017-02-16 16:09 | PDIAF ---
- Diagnosis Diagnosis: Tibial plateau fracture, leg pain, mechanical fall Code Status: Do Not Resuscitate - Medication Management Discharge Medications: Medications to Continue on Transfer Hydrochlorothiazide [HCTZ (*)] 25 mg PO DAILY 06/22/14 [Last Taken 02/12/17 06: 00] Lisinopril [Zestril 20 mg (*)] 20 mg PO DAILY 06/22/14 [Last Taken 02/12/17 06: 00] PARoxetine HCL [Paroxetine HCl] 40 mg PO DAILY 06/22/14 [Last Taken 02/12/17 06: 00] metFORMIN HCL [Glucophage 500 mg (*)] 500 mg PO DAILY 06/22/14 [Last Taken 02/12 06:00] Gabapentin [Neurontin 300 MG (*)] 600 mg PO TID 02/12/17 [Last Taken 02/12/17 06 :00] Herbals/Supplements -Info Only 1 ea PO DAILY 02/12/17 [Last Taken 02/05/17] Tizanidine HCl 4 mg PO TID PRN 02/12/17 [Last Taken 02/12/17 06:00] Acetaminophen [Tylenol 325mg (*)] 650 mg PO Q4HRS PRN tab 02/16/17 [Last Taken Unknown] Bisacodyl [Bisacodyl (*)] 5 mg PO PRN PRN tab 02/16/17 [Last Taken Unknown] Hydrogen Peroxide [Hydrogen Peroxide (OTC)] 1 lana TP AD solution 02/16/17 [ Last Taken Unknown] Melatonin [Melatonin 3 MG (*)] 3 mg PO HS tab 02/16/17 [Last Taken Unknown] Nicotine Polacrilex [Nicorette gum (*)] 2 mg B PRN PRN gum 02/16/17 [Last Taken Unknown] Polyethylene Glycol 3350 [Miralax 17 gm (*)] 17 gm PO DAILY PRN pkt 02/16/17 [ Last Taken Unknown] Rivaroxaban [Xarelto 10mg (*)] 10 mg PO DAILY tab 02/16/17 [Last Taken Unknown] Sennosides/Docusate Sodium [Senokot-S] 1 - 2 tab PO BID tab 02/16/17 [Last Taken Unknown] morphINE IR [morphINE IR 15 mg (*)] 7.5 - 15 mg PO Q4HRS PRN tab 02/16/17 [ Last Taken Unknown] Nursing Home Antibiotics: NA Discharge Medications: Refer to the Discharge Home Medication list for PRN reason. PICC Care - Routine: N/A - Orders Services needed: Registered Nurse, Certified Plisse Machine Operator, Physical Therapy, Occupational Therapy Isolation Type: None Oxygen: 3L NC continuous Diet Recommendation: ADA 2000 consistent carb Weigh Patient: weekly [place]: Yes (until after surgery) Wound Care Instructions: keep area CDI Equipment: external fixation RLE Additional: surgery will be scheduled for 02/21 PM, please contact Dr. Bay' s office to schedule 02/20 appointment and exact pre-op instructions - Follow Up Care Current Providers and Referrals: Lee Angela MD [Primary Care Provider] - As per Instructions Aurelio Reed MD [Medical Doctor] - (FOLLOW UP IN A WEEK FOR A RECHECK. CALL TO SCHEDULE A TIME) Fletcher Bay MD [Medical Doctor] - follow up in 1 week (Follow up in the office with Dr. Bay on SundayFebruary 20, 2017.)
[2017-02-16 17:03] VITALS: BP 122/83; PULSE 91; TEMP 98.3; O2SAT 95
--- NOTE | 2017-02-16 18:07 | PDDCSUM ---
Discharge Summary Discharge Summary: DISCHARGE SUMMARY FOLLOW-UP ITEMS: Schedule surgery next week with Dr. Gokul Bay DATE OF ADMISSION: 02/12/2017 DATE OF DISCHARGE: 02/16/2017 DISCHARGE DIAGNOSES: 1. Acute tibial plateau fracture 2. Chronic lower back pain 3. Morbid obesity with BMI 42 4. Acute atelectasis 5. Acute kidney injury 6. Chronic coronary artery disease 7. Acute hypotension 8. Acute encephalopathy 9. Acute mechanical fall CONSULTATIONS: Orthopedic surgery by Dr. Fletcher Bay PROCEDURES / IMAGING: X-ray of the leg demonstrating tibial plateau fracture, external fixation of right lower extremity CHIEF COMPLAINT: Acute leg pain status post mechanical fall SUBJECTIVE: Patient continues to experience some pain discomfort in the lower extremity but is responding to pain medications, the patient is anxious to get to rehab PHYSICAL EXAM ON DISCHARGE: Systolic blood pressure 101/50, heart rate 70-90, afebrile overnight, satting well on 3 L nasal cannula, alert awake oriented x3, mild amount of agitation and distress, patient is anxious and wants to go to retirement facility, abdomen is soft, nontender, bowel sounds are present, lungs are clear to auscultation bilaterally with mildly reduced air movement bilateral bases, heart rhythm is regular, right lower extremity has some soft tissue edema sensation is intact, external fixation intact LABS ON DISCHARGE: White blood cell count 9500, hemoglobin 10.7, creatinine 0.7, potassium 4.1, urinalysis unremarkable HOSPITAL COURSE BY PROBLEM: 1. Acute tibial plateau fracture. Status post mechanical fall, required urgent orthopedic evaluation, patient received external fixation with plan for scheduled surgery next week, 02/21, with retirement facility rehab in the interim. Patient required opiate medications for pain control, she experienced toxic effects of Dilaudid, adjusted to morphine, with better affect. Patient did experience some constipation and aggressive bowel regiment was applied. Patient did have bowel movement prior to discharge. She will be continued on a bowel regiment. She will follow up with Dr. Fletcher Bay next Sunday, and will have scheduled surgery next Sunday. 2. Chronic lower back pain. This was exacerbated by her recent fall, she was seen consultation by Neurosurgery, they did not recommend any additional advanced imaging at this time. She should follow up with Dr. Lundy as an outpatient. 3. Morbid obesity. BMI 42, increase this patient's functional risk for worsening morbidity and/or mortality. 4. Acute atelectasis. Present on chest x-ray, patient received ongoing supplemental oxygen and incentive spirometer, she continued to require supplemental oxygen at time of discharge. She may also have an element of obesity hypoventilation syndrome. 5. Acute kidney injury. Patient's baseline creatinine is unknown, but her creatinine settled out around 0.7 and her creatinine peaked at 1.2, most likely secondary to hypovolemia resulting in hypotension, responsive to IV fluids. 6. Chronic coronary artery disease. Patient was continued on her home medications. 7. Acute hypotension. This occurred intermittently, with secondary to poor oral intake while the patient was encephalopathic, responded to lactated Ringer' s. 8. Acute encephalopathy. Evidenced by global brain dysfunction characterized as loosening shins, agitation, confusion, disorientation, all of which are an acute change from her baseline, secondary to the toxic effects of pain medication as well as the disrupted sleep pattern and environmental changes. She was ruled out for infection, and she responded well to as needed Zyprexa. We also adjusted her pain medication from Dilaudid to morphine, and she did not experience further complications from her pain med. Her mental status is at baseline at time of discharge. She should continue at bedtime melatonin to regular sleep-wake cycle. 9. Acute mechanical fall. This is what prompted patient's tibial fracture, she will most likely require retirement facility placement after her neck surgery. DISCHARGE MEDICATIONS: Please see official discharge medication reconciliation sheet in chart , as needed morphine, scheduled Senokot S, scheduled melatonin at night, as needed bowel regiment. DISCHARGE INSTRUCTIONS: Please schedule outpatient follow-up on 02/20, then surgery on 02/21. TIME SPENT: Greater than 30 minutes were spent on direct patient care, as well as discharge planning and preparation.
--- NOTE | 2017-02-17 10:05 | ASDISCHSUM ---
Discharge Information Plan Status:SNF Medically Cleared to Leave: Discharge Date:02/16/2017 06:05 PM D/C Disposition:[facility] ADT D/C Disposition:[facility] Facility Projected Discharge Date:02/15/2017 11:00 AM Transportation at D/C:ALS/BLS Discharge Delay Reason: Follow-Up Date:02/15/2017 11:00 AM Discharge Slot: Final Diagnosis: Placement Information Referral Type:*Intermediate/SNF Referral ID:[id number] Provider Name:[facility] Address 1:[address] Address 2: City:[place] Selection Factors: State:[place] Patient Contact Information Contact Name:ELEUTERIO Relationship:Son Address:[address] City:[place] Alternate Phone: State/Zip Code:[place] [address] Email: Financial Information Financial Class: Primary Plan Desc:MEDICARE INPATIENT Primary Plan Number:[id number] Secondary Plan Desc:MEDICAID [place] Secondary Plan Number:[id number] Assessment Information [facility] CM Progress Note CM Note CM Note Notes: Chart reviewed. Met with patient to review possible discharge scenarios. She is 66 year old female that normally lives alone indpendent who fell and sustained tibial plateau fracture. She currently is on bedrest wit h an external fixation device in place until swelling diminishes to a point surgery is ready to occur. She reports she tripped and fell over her carpet at home. She has a pet and lives in an apartment with multiple entry stairs. Likely will need SNF rehab. Discussed this with patient who is agreeable. Her son has been encouraged to visit with [facility] as a rehab is preferred over SNF rehab facility. CM to follow. Date Signed: 02/13/2017 02:16 PM Electronically Signed By:Johnna Murphy RN [facility] CM Progress Note CM Note CM Note Notes: Spoke with patient about discharge planning. She is interested in [facility]. I sent referrals, and spoke to her son who will review them online. Current plan is for patient to discharge to SNF tomorrow, then return to [facility] to have ORIF with Dr Bay 02/21. Post-operatively, she will return to SNF. CM will follow. Date Signed: 02/14/2017 02:07 PM Electronically Signed By:Vivi Gutierres RN [facility] CM Progress Note CM Note CM Note Notes: Pt accepted at [facility]; spoke w pt and son who chose [facility]. Pt likely d/c Sunday or Sunday, [facility] updated. Date Signed: 02/15/2017 10:39 AM Electronically Signed By:MARILEE Kennedy Intervention Information
--- NOTE | 2017-02-17 10:08 | ASMTCMCOM ---
CM Note CM Note Notes: Pt d/c to [facility] yesterday, stretcher set up by [facility] and this CM completed PCS Date Signed: 02/17/2017 10:07 AM Electronically Signed By:MARILEE Kennedy
== END 2017-02-16 18:05 | DRG 493 ==
LOC: EDUNIT# → F3N 16:01
PROVIDERS: ADMIT Internal Medicine; ATTEND Internal Medicine
PROC: 0QSG35Z Reposition Right Tibia with External Fixation Device, Percutaneous Approach (ICD-10-PCS; principal; 2017-02-12 18:30)
DX: S82.141A Displaced bicondylar fracture of right tibia, initial encounter for closed fracture (principal); Z68.41 Body mass index [BMI] 40.0-44.9, adult; W01.0XXA Fall on same level from slipping, tripping and stumbling without subsequent striking against object, initial encounter; Y93.E9 Activity, other interior property and clothing maintenance; Y92.018 Other place in single-family (private) house as the place of occurrence of the external cause; I25.10 Atherosclerotic heart disease of native coronary artery without angina pectoris; E66.01 Morbid (severe) obesity due to excess calories; I25.2 Old myocardial infarction; I10 Essential (primary) hypertension; E78.5 Hyperlipidemia, unspecified; J44.9 Chronic obstructive pulmonary disease, unspecified; F32.9 Major depressive disorder, single episode, unspecified; Z98.1 Arthrodesis status; Z87.891 Personal history of nicotine dependence; Z80.9 Family history of malignant neoplasm, unspecified; Z66 Do not resuscitate
CPT/HCPCS: 96374; 97163-GP; 97167-GO; 97530-GO; 97530-GP; 97535-GO; C1713; G8978-GP-CL; G8979-GP-CJ; G8987-GO-CM; G8988-GO-CK; J0171; J0690; J1170; J2250; J2704; J3010

== ENCOUNTER 2017-02-21 11:39 | Inpatient (IN) | payer OTHER, MEDICAID ==
--- NOTE | 2017-02-20 14:59 | PDGENHP ---
History and Physical - Chief Complaint R knee pain - History of Present Illness 66y/o F c/o R knee pain x 10 days. Pt sustained a fall, landing on her R knee 02/12/2017. She was evaluated at [facility] ED and admitted for further evaluation. Dr. Bay was consulted at this point for a R tibial plateau fracture. While inpatient pt underwent ex fix stabilization of the fracture. Pt was discharged from [facility] to a SNF and is now prepared to undergo permanent fixation of the fracture. Pt states her edema has decreased and pain is well- controlled. She has been NWB on the RLE. History Information - Allergies/Home Medication List Allergies/Adverse Reactions: No Known Allergies Allergy (Verified 02/12/17 11:24) Home Medications: Hydrochlorothiazide [HCTZ (*)] 25 mg PO DAILY 06/22/14 [Last Taken 02/12/17 06: 00] Lisinopril [Zestril 20 mg (*)] 20 mg PO DAILY 06/22/14 [Last Taken 02/12/17 06: 00] PARoxetine HCL [Paroxetine HCl] 40 mg PO DAILY 06/22/14 [Last Taken 02/12/17 06: 00] metFORMIN HCL [Glucophage 500 mg (*)] 500 mg PO DAILY 06/22/14 [Last Taken 02/12 06:00] Gabapentin [Neurontin 300 MG (*)] 600 mg PO TID 02/12/17 [Last Taken 02/12/17 06 :00] Herbals/Supplements -Info Only 1 ea PO DAILY 02/12/17 [Last Taken 02/05/17] Tizanidine HCl 4 mg PO TID PRN 02/12/17 [Last Taken 02/12/17 06:00] I have personally reviewed and updated: family history, medical history, social history, surgical history - Past Medical History COPD, hypertension, hyperlipidemia, myocardial infarction Additional medical history: Depression, spinal stenosis, obesity - Surgical History Reports: spinal surgery (Cervical fusion June 2014 and lumbar fusion October 2014) - Family History Positive for: cancer Additional family history: Alcoholism - Social History Smoking Status: Former smoker Alcohol Use: Sober Review of Systems Review of Systems: ROS: 10pt was reviewed & negative except for what was stated in HPI & below Physical Exam Physical Exam: Constitutional: no apparent distress, appears nourished Eyes: PERRL, EOMI Ears, Nose, Mouth, Throat: moist mucous membranes, ears appear normal, no oral mucosal ulcers Cardiovascular: regular rate and rhythym, no murmur, rub, or gallop Peripheral Pulses: 2+: dorsalis-pedis (R), dorsalis-pedis (L) Respiratory: no respiratory distress, clear to auscultation Gastrointestinal: normoactive bowel sounds, soft, non-tender abdomen Skin: warm, other (RLE edema and ecchymosis) Musculoskeletal: other (ex-fix intact RLE, able to wiggle toes ) Neurologic: AAOx3, sensation intact bilaterally Psychiatric: interacting appropriately Lymph, Heme, Immunologic: no cervical LAD Lab Data & Imaging Review Imaging Review: CT: comminuted, displaced and depressed intra-articular fracture of the medial and lateral right tibial plateau Assessment & Plan Assessment: Right bicondylar tibial plateau fracture Plan: Patient is scheduled to undergo a right knee/leg external fixator removal and ORIF tibial plateau, arthrotomy, possible meniscus repair vs partial meniscectomy, and loose body removal. Risks, benefits, and alternatives were discussed with the patient and a signed consent was obtained.
[2017-02-21] MEDS ORDERED: ceFAZolin 2 GM/SWFI 2 GM/20 ML SYR IVP ONE (12:23)
[2017-02-21] MEDS ORDERED: LR 1,000 ML IV ONE (12:26)
[2017-02-21] MEDS ORDERED: BUPIVACAINE 0.25% 30 ML SDV ONE (12:37)
[2017-02-21] MEDS ORDERED: POLYMYXIN B SULFATE 500,000 UNIT/10 ML SYR IRR ONE (12:37)
[2017-02-21] MEDS ORDERED: BACITRACIN 50,000 UNITS/10 ML SYR IRR ONE (12:38)
[2017-02-21] MEDS ORDERED: IPRATROPIUM/ALBUTEROL 3 ML DEYVIAL ONE (13:46)
[2017-02-21] MEDS ORDERED: IPRATROPIUM/ALBUTEROL 3 ML DEYVIAL IH ONE (13:47)
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
[2017-02-21] MEDS ORDERED: LIDOCAINE 2% 5 ML SDV ONE (14:03)
[2017-02-21] MEDS ORDERED: ROCURONIUM 100 MG/10 ML VIAL ONE (14:03)
[2017-02-21] MEDS ORDERED: PROPOFOL/EMULSION 500 MG/50 ML BOTTLE IV ONE (14:03)
[2017-02-21] MEDS ORDERED: DEXAMETHASONE 4 MG/ML VIAL ONE (14:03)
[2017-02-21] MEDS ORDERED: PHENYLEPHRINE HCL 100 MCG/ML SYR ONE (14:26)
[2017-02-21] MEDS ORDERED: ONDANSETRON 4 MG/2 ML VIAL ONE (16:31)
[2017-02-21] MEDS ORDERED: KETOROLAC 30 MG/1 ML SDV ONE (16:31)
[2017-02-21] MEDS ORDERED: ALBUTEROL 3 ML DEYVIAL IH PRN (16:34)
[2017-02-21] MEDS ORDERED: LR 500 ML IV PRN (16:34)
[2017-02-21] MEDS ORDERED: PROMETHAZINE HCL 25 MG/ML INJ IVP PRN (16:34)
[2017-02-21] MEDS ORDERED: ACETAMINOPHEN 500 MG TAB PO PRN (16:34)
[2017-02-21] MEDS ORDERED: OXYCODONE/APAP 5/325 TAB PO PRN (16:34)
[2017-02-21] MEDS ORDERED: NALOXONE HCL 0.4 MG/ML INJ IVP PRN (16:34)
[2017-02-21] MEDS ORDERED: NEOSTIGMINE METHYLSULFATE 3 MG/3 ML SYR ONE (16:39)
[2017-02-21] MEDS ORDERED: GLYCOPYRROLATE 0.2 MG/1 ML VIAL ONE ×2 (16:40→16:55)
--- NOTE | 2017-02-21 17:31 | POSTANESTH ---
Post Anesthetic Evaluation Cardiovascular Status: Normal, Stable Respiratory Status: Normal, Stable Level of Consciousness/Mental Status: Can Participate in Eval, Moderately Sleepy Pain Control: Adequate, Prn Tx Ordered Nausea/Vomiting Control: Adequate, Prn Tx Ordered Complications Possibly Related to Anesthesia: None Noted
[2017-02-21] MEDS ORDERED: ONDANSETRON 4 MG/2 ML VIAL IVP PRN (17:33)
[2017-02-21] MEDS ORDERED: ONDANSETRON DISINTEGRATING 4 MG TAB PO PRN (17:33)
[2017-02-21] MEDS ORDERED: LACTULOSE 20 GM/30 ML UDCUP PO PRN (17:37)
[2017-02-21] MEDS ORDERED: POLYETHYLENE GLYCOL 3350 17 GM PKT PO PRN ×2 (17:37→20:55)
[2017-02-21] MEDS ORDERED: DIPHENOXYLATE/ATROPINE LOMOTIL 1 TAB PO PRN (17:37)
[2017-02-21] MEDS ORDERED: BISACODYL 10 MG SUPP PR PRN (17:37)
[2017-02-21] MEDS ORDERED: MAGNESIUM HYDROXIDE 30 ML UDCUP PO PRN (17:37)
[2017-02-21] MEDS ORDERED: diphenhydrAMINE 25 MG CAP PO PRN (17:37)
--- NOTE | 2017-02-21 18:01 | POSTOPPROG ---
Post Op Note Date of Operation: 02/21/17 Surgeon: Fletcher Bay Medical Attendant: Therese Solorzano PA-C Anesthesia: GET(General Endotracheal) Pre-op Diagnosis: right tibia plateau fracture Post-op Diagnosis: right tibia plateau fracture Indication: unstable fracture Procedure: right ORIF tibia plateau fracture Findings: see dictated op note Inf/Abcess present in the surg proc area at time of surgery?: No EBL: Minimal Complications: none Specimen(s): none
[2017-02-21] MEDS: ACETAMINOPHEN 325 MG TAB PO SCH ×2 (19:33→23:45)
[2017-02-21] MEDS: FAMOTIDINE 20 MG TAB PO SCH (19:33)
[2017-02-21] MEDS: SENNOSIDES/DOCUSATE SODIUM TAB PO SCH (19:33)
[2017-02-21] MEDS ORDERED: NICOTINE POLACRILEX 2 MG GUM B PRN (20:55)
[2017-02-21] MEDS ORDERED: ACETAMINOPHEN 325 MG TAB PO PRN (20:55)
[2017-02-21] MEDS ORDERED: BISACODYL 5 MG EC TAB PO PRN (20:55)
[2017-02-21] MEDS ORDERED: SENNOSIDES/DOCUSATE SODIUM TAB PO SCH (21:00)
[2017-02-21] MEDS: oxyCODONE IR 5 MG TAB PO PRN (22:25)
[2017-02-21] MEDS: ceFAZolin 2 GM/DEXTROSE 100 ML IV SCH (22:25)
[2017-02-21] MEDS: MELATONIN 3 MG TAB PO SCH (22:26)
[2017-02-21] MEDS: GABAPENTIN 300 MG CAP PO SCH (22:26)
[2017-02-21] MEDS: CYCLOBENZAPRINE 10 MG TAB PO PRN (23:45)
--- NOTE | 2017-02-22 04:20 | GOP ---
[f rep st] OPERATIVE REPORT DATE OF OPERATION: 02/21/2017 SURGEON: Fletcher Bay MD CLOUD OPERATIONS ENGINEER: Therese Solorzano PA-C. ANESTHESIA: General. ANESTHESIOLOGIST: Zenia Sainz MD. PREOPERATIVE DIAGNOSIS: 1. Closed right tibial plateau bicondylar fracture. 2. Spanning external fixator, right knee. POSTOPERATIVE DIAGNOSIS: 1. Closed right tibial plateau bicondylar fracture. 2. Spanning external fixator, right knee. PROCEDURE PERFORMED: 1. Removal of right knee spanning external fixator, under anesthesia. 2. Open reduction, internal fixation of right tibial plateau bicondylar fracture (Schatzker 5). FINDINGS: Bone quality was consistent with osteoporosis, i.e. poor bone quality. The patient is mor bidly obese, making the surgery more difficult for exposure and overall soft tissue management. Ther e are comminuted fractures of both the lateral and medial tibial plateau condyles. Appropriate reduc tion was achieved with standard techniques. Additional locking screws were necessary due to the nestor ent's osteoporosis. Please note, compartments were soft preoperatively through the postoperative per iod. INDICATIONS: A 66-year-old female, who suffered a mechanical fall on 02/12/2017. On the same day, s he underwent provisional stabilization with a spanning external fixator for a bicondylar tibial plate au fracture. The patient was managed as an inpatient at [facility], then transferred to a care home facility. She returns today for definitive open reduction, internal fixation n ow that her swelling has subsided. The risks, benefits, and alternatives have been discussed with th e patient. All of her questions were answered prior to surgery. She provided a signed and witnessed informed consent which was placed in her chart. See history and physical, as well as consent form f or additional information. DESCRIPTION OF PROCEDURE: The patient was identified in the preoperative holding area and her right knee was signed and designated as the operative site. The patient was confirmed in left lower extrem ity AGA arthur and SCDs. She was treated with 2 g IV prophylactic cefazolin per protocol. She was enrique en back to the operating room, placed supine on the OR table, and general anesthesia was obtained. U nder general anesthesia, using both a power drill as well as 2 wrenches from the Synthes external fix ator set, the frame was loosened and the construct was removed from all of the half pins, i.e., the 2 in the femur and the 2 in the tibia. Once the frame was removed, the pins were backed out using the reverse function on the drill. In all cases, the half pins were removed in their entireties and in good condition. Each of the pin sites were inspected and palpated, and there were no signs of obviou s gross infection. Once this was completed, the right lower extremity was bathed with a chlorhexidin e sponge bath. This was then cleansed and dried. The right lower extremity was then prepped and dixie ped in the usual sterile manner. Please note that the proximal thigh was wrapped with cast padding a nd a nonsterile tourniquet prior to prepping and draping. A large C-arm was also prepped and draped in usual sterile manner for use during the surgery for both hardware positioning and fracture reducti on. Esmarch exsanguination and gravity were utilized to exsanguinate the limb, and the tourniquet was inf lated to 275 mmHg. A standard, lateral, lazy-S type incision was used for the approach to the latera l aspect of the tibial plateau and a direct mid medial incision was placed in a linear manner and mike tical in orientation, for the medial tibial plateau surgery. In both cases, a full-thickness dermal incision was made with a #10 blade. Careful dissection was taken down through the subcutaneous fat w ith the Bovie cautery device and all small crossing vessels were coagulated. Once the abundant fat l evel was divided and dissection was achieved down to the level of the fascia and IT band laterally, a s well as the fascia and sartorius medially, large retractors were placed. The exposure was somewhat difficult. The incisions were required to be larger than usual due to the patient's severe obesity. Initial focus was on the lateral side exposure. The IT band was divided in parallel with its fiber s and then the incision was carried distally over Gerdy's tubercle and anteriorly up to the anterior tibial crest. Subperiosteal dissection was used along the tibial crest and then carried posteriorly along the anterolateral tibial cortex and lateral tibial plateau. The joint line was identified and some hemarthrosis was evacuated from the joint through a small sub-meniscal arthrotomy. This was irr igated and suctioned. Appropriate exposure was obtained over the lateral tibial plateau, and then ex posure was performed along the medial tibial plateau. Dissection was carried down to the level of the sartorius. The semitendinosus and gracilis tendons w ere isolated and these were held with a vessel loop, and maintained intact to their insertion points. Both superior and inferior to the tendons, the procedure was proceeded with a midline vertical inci jessica, such that a window-type technique could be used to achieve access to the medial tibial cortex a nd plateau. Once this was completed, a buttress plate-type plan was proceeded with for fixation and reduction of the medial tibial plateau. A 3.5 mm medial plate was under-contoured and bent by me in order to use the plate to perform a reduction in buttress technique. This was positioned and found t o be appropriately fitting, and then this was provisionally fixated with 2 guidewires. Next, a later al plate was also selected from the Synthes set, and this was also positioned in the appropriate posi tion and provisionally fixated with K-wires. A large periarticular clamp was used to compress the 2 plates and achieve an appropriate reduction. Care was taken to superiorly compress the lateral fragm ent, as this was minimally depressed. With minimal reduction and indirect measures, an appropriate r eduction was achieved at the articular surface and down at the metadiaphyseal region of the fracture. Orthogonal x-rays were taken and an appropriate reduction was confirmed in both planes. Hardware w as confirmed in both planes. The plates were then fixated down to bone with 2 screws in a nonlocking manner laterally and 1 screw in a nonlocking manner medially in order to achieve compression of the plate down to bone. Additional x-rays were then taken to confirm appropriate reduction and elevation of the joint surface. Near-anatomic reduction was achieved on both AP and lateral views. As a resu lt, further fixation was then proceeded with using a combination of both locking and nonlocking screw s. In some cases, due to the medial and lateral plates and crossing screws, locking or nonlocking sc rews were necessary in order to achieve appropriate fixation and passage of screws next to 1 another. All screws were placed using the Synthes small fragment set, i.e., locking and nonlocking screws fo r both the proximal tibial plateau and small fragment sets. These were all star drive or hex drive. Finalized images were taken, confirming appropriate reduction throughout. The most inferior screw b etween the 2 places was actually passed through both plates, i.e., from 1 hole in the plate out to th e opposite hole of the other plate. Once all hardware was confirmed to be in the appropriate positio n and orthogonal x-rays confirmed reduction and hardware positioning, finalized images were taken and printed. The wounds were copiously irrigated with sterile saline and then closure was begun. The IT band split as well as split of the sartorius membrane and fascia were repaired with multiple i nterrupted #1 Ethibond sutures. The deep fat space was closed at both wound sites with multiple 0 Vi cryl sutures. Both wounds were closed in a deep dermal layer with 2-0 Vicryl sutures. The skin was then formally closed with [place]. Sterile postoperative surgical dressings were applied. Tournique t was dropped prior to closure of the skin, and hemostasis was confirmed throughout. A AGA hose was applied. The right lower extremity was placed in a hinged knee brace, locked in full extension. The anesthesia service then took over to wake the patient up. TOURNIQUET TIME: 1 hour and 52 minutes at 275 mmHg. DRAINS: None. IMPLANTS: Synthes 3.5 mm proximal tibial plates, i.e., medial and lateral, with a combination of bot h locking and nonlocking screws, all from the small fragment set, and screwdrivers including hex and star drive. COMPLICATIONS: None. DISPOSITION: The patient was extubated and transferred to the PACU in stable condition. In the PACU , the patient was able to dorsiflex and plantar flex her foot without difficulty. She denied any num bness or tingling. /[id number]/MODL
[2017-02-22] MEDS: ceFAZolin 2 GM/DEXTROSE 100 ML IV SCH (05:34)
[2017-02-22] MEDS: ACETAMINOPHEN 325 MG TAB PO SCH ×4 (05:34→23:52)
[2017-02-22] MEDS: oxyCODONE IR 5 MG TAB PO PRN ×8 (05:34→23:11)
[2017-02-22 05:47] LABS: % IMMATURE GRANULYOCYTES 0.6 % (0.0-1.1); ABSOLUTE IMMATURE GRANULOCYTES 0.08 10^3/uL (0.00-0.10); ADD DIFF? NO; ADD MORPH? NO; ADD SCAN? NO; ATYPICAL LYMPHOCYTE FLAG 10 (0-99); FRAGMENT RBC FLAG 0 (0-99); HEMATOCRIT 27.8 % (38.0-47.0); HEMOGLOBIN 9.5 g/dL (12.6-16.3); LEFT SHIFT FLG 10 (0-99); LIPEMIA HEMOLYSIS FLAG 90 (0-99); MEAN CELL HEMOGLOBIN 31.8 pg (27.9-34.1); MEAN CELL HEMOGLOBIN CONCENTR. 34.2 g/dL (32.4-36.7); PLATELET CLUMPS FLAG 0 (0-99); PLATELET COUNT 318 10^3/uL (150-400); RED BLOOD CELL COUNT 2.99 10^6/uL (4.18-5.33); RED CELL DISTRIBUTION WIDTH 13.1 % (11.5-15.2)
[2017-02-22 05:53] LABS: ANION GAP 10 mEq/L (8-16); CALCIUM 8.7 mg/dL (8.5-10.4); CARBON DIOXIDE 32 mEq/l (22-31); CHLORIDE 91 mEq/L (97-110); GLOMERULAR FILTRATION RATE 55; GLUCOSE 113 mg/dL (70-100); POTASSIUM 4.6 mEq/L (3.5-5.2); SODIUM 133 mEq/L (134-144)
--- NOTE | 2017-02-22 06:26 | GCON ---
[f rep st] CONSULTATION INTERNAL MEDICINE CONSULTATION REQUESTING PHYSICIAN: Dr. Fletcher Bay. REASON FOR CONSULTATION: Medical management of hypertension. HISTORY OF PRESENT ILLNESS: This is a 66-year-old female who was recently hospitalized just a week a go. She was hospitalized then for an acute tibial plateau fracture due to a mechanical fall. She had external fixation placement right lower extremity and then underwent ORIF today. There were no complications and minimal blood loss. The patient is doing well currently. She denies any chest pain, shortness of breath. REVIEW OF SYSTEMS: A 10-point review of systems was obtained and was negative. PAST MEDICAL HISTORY: 1. Hypertension. 2. History of an CO about 6-7 years ago, which she describes as small. 3. Dyslipidemia. 4. COPD. 5. Depression. 6. Obesity. 7. Spinal stenosis. PAST SURGICAL HISTORY: Cervical fusion 2004, low back surgery. FAMILY HISTORY: Mother of cancer. Father was an alcoholic. SOCIAL HISTORY: Former smoker and former alcoholic and is retired. PHYSICAL EXAM: VITAL SIGNS: Afebrile, blood pressure is 127/98, oxygen saturation 92% on 6 L. GENE RAL: Patient is well developed, in no apparent distress. HEENT: Nonicteric sclerae. Extraocular m uscles intact. Moist mucous membranes. NECK: Supple. No thyromegaly. LUNGS: Good effort. Clear to auscultation bilaterally. CARDIOVASCULAR: Regular rate and rhythm. No murmurs or gallops. ABD OMEN: Positive bowel sounds. Soft, nontender, nondistended. No hepatosplenomegaly. EXTREMITIES: No clubbing, cyanosis, or edema. SKIN: Without rash, dry, intact. NEUROLOGIC: Alert and oriented x3. Moving all 4 extremities equally. PSYCH: Normal affect. LABORATORY DATA: No labs are drawn today. ASSESSMENT: 1. Tibial plateau fracture status post open reduction internal fixation. Per Orthopedic Surgery, pro fall will need longterm facility, rehab. 2. Hypertension. Will continue her lisinopril and probably will hold her hydrochlorothiazide for a little bit longer. 3. Borderline diabetes. Can restart her metformin. 4. Hypoxia, probably due to some atelectasis. We will see if we can wean down her oxygen overnight. 5. Deep vein thrombosis prophylaxis. Will start Lovenox or oral anticoagulant starting tomorrow wit h next taper per Orthopedic Surgery. Thank you for this consultation. Will follow along with you. /[id number]/MODL
--- NOTE | 2017-02-22 07:41 | SOAPPROG ---
<Swati Vazquez - Last Filed: 02/22/17 07:42> SOAP Progress Note Assessment/Plan: Assessment/Plan: s/p ex fix removal and ORIF R tibial plateau bicondylar fracture POD#1 - Continue pain management, encourage PO - NWB RLE - Continue CPM 6-8 hours per day, increasing to 90 degrees as tolerated - Brace locked in extension while up and OOB - Finish course of post-operative antibiotics - SCDs/TEDs on the contralateral leg for mechanical prophylaxis, jesús bandage on the RLE - Start Lovenox today for VTE chemoprophylaxis - Continue PT/OT - Likely discharge back to [facility] 02/22/17 07:38 02/22/17 07:42 Subjective: Pt states she is doing well, pain is well-controlled. Pt denies fever, chills, chest pain, SOB, abdominal pain, N/V/D, numbness, tingling and calf pain. Objective: Vital Signs Temp Pulse Resp BP Pulse Ox 37.1 C 74 17 102/70 92 02/22/17 04:00 02/22/17 04:00 02/22/17 04:00 02/22/17 04:00 02/22/17 04:00 Laboratory Results 02/22/17 05:27 02/22/17 05:27 02/21/17 02/22/17 02/23/17 05:59 05:59 05:59 Intake Total 2815 Output Total 1620 Balance 1195 Physical Exam - Physical Exam General Appearance: alert, no apparent distress Cardiac/Chest: normal peripheral pulses Skin: normal color, warm/dry Extremities: normal capillary refill, swelling (localized to R knee), other ( Post-operative dressing intact, brace intact RLE), No pedal edema, No calf tenderness, No David's sign Neuro/Psych: no motor/sensory deficits, alert, normal mood/affect, oriented x 3 ICD10 Worksheet Patient Problems: Problems Problem Status Onset Lumbar degenerative disc disease Acute Tibial plateau fracture, right Acute Arthrodesis status Chronic Cervical radiculitis Chronic <Fletcher Bay - Last Filed: 02/22/17 14:47> SOAP Progress Note Assessment/Plan: Assessment: Doing well, pain minimal. Very happy POD1 s/p definitive ORIF R bicondylar tib plateau fx. CPM is apparently on back-order. Plan: As above. Begin CPM per orders once available. Brace locked in extension except for ROM - strict NWB RLE. OK for d/c once clears PT/OT goals for SNF. 02/22/17 14:45 Objective: Vital Signs Temp Pulse Resp BP Pulse Ox 36.7 C 88 18 107/65 91 L 02/22/17 10:57 02/22/17 10:57 02/22/17 08:00 02/22/17 10:57 02/22/17 10:57 Laboratory Results 02/22/17 05:27 02/22/17 05:27 02/21/17 02/22/17 02/23/17 05:59 05:59 05:59 Intake Total 2815 850 Output Total 1620 750 Balance 1195 100 RLE dsgs c/d/i. No pain with passive stretch. Active ankle/foot ROM intact. DNVI BLE's. No sig edema, NTTP, neg David's BLEs. In [facility]KB.
[2017-02-22] MEDS: SENNOSIDES/DOCUSATE SODIUM TAB PO SCH ×2 (08:14→20:46)
[2017-02-22] MEDS: GABAPENTIN 300 MG CAP PO SCH ×3 (08:15→23:11)
[2017-02-22] MEDS: metFORMIN HCL 500 MG TAB PO SCH (08:16)
[2017-02-22] MEDS: LISINOPRIL 20 MG TAB PO SCH (08:17)
[2017-02-22] MEDS: FAMOTIDINE 20 MG TAB PO SCH ×2 (08:17→20:27)
[2017-02-22] MEDS: PARoxetine HCL 20 MG TAB PO SCH (08:18)
[2017-02-22] MEDS: RIVAROXABAN 10 MG TAB PO SCH (08:18)
[2017-02-22] MEDS ORDERED: RIVAROXABAN 10 MG TAB PO SCH (09:00)
[2017-02-22] MEDS ORDERED: Herbals/Supplements -Info Only PO SCH (09:00)
[2017-02-22] MEDS ORDERED: HYDROCHLOROTHIAZIDE 25 MG TAB PO SCH (09:00)
--- NOTE | 2017-02-22 10:33 | ASMTCMCOM ---
CM Note CM Note Notes: Pt admitted from [facility] for planned surgery for R tibial plateau fx. She normally lives independantly. Met w/pt to discuss; most likely dc back to [facility] when medically ready. Karma from [facility] will come today to meet w/pt and answer questions regarding Medicare/Medicaid coverage. Pt has supportive son who is local. CM will follow. Date Signed: 02/22/2017 10:32 AM Electronically Signed By:Cherelle Smith RN
[2017-02-22] MEDS: CYCLOBENZAPRINE 10 MG TAB PO PRN ×2 (10:59→19:36)
[2017-02-22] MEDS ORDERED: ceFAZolin 2 GM/DEXTROSE 100 ML IV SCH (14:00)
--- NOTE | 2017-02-22 15:01 | HOSPPROG ---
Hospitalist Progress Note Assessment/Plan: patient is a 66 y/o female who had an acute tibial fracture from a fall. She was here approximately a week ago. Initally she had exteranl fixation placemnt and then on this stay, underwent an ORIF. Today is my first encounter w the patient. Chart reviewed. *Tibial plateau fx -s/p ORIF -NWB to RLE *HTN -bp 107/65 *Hypoxemia -on 2 liters -likely postop atelectasis *hyponatremia -mild, will follow *Borderline diabetes -glucose stable *Leukocytosis -stress induced *DVT prophylaxis: LMWH *Plan: CM to work with her in regards to [place]/ only has a defined amount of time where she is covered. She will need longer term care. CM to further discuss [facility]. Subjective: Danuta has no complaints/very appreciative about getting surgery. Objective: Vital Signs Temp Pulse Resp BP Pulse Ox 36.7 C 88 18 107/65 91 L 02/22/17 10:57 02/22/17 10:57 02/22/17 08:00 02/22/17 10:57 02/22/17 10:57 Laboratory Results 02/22/17 05:27 02/22/17 05:27 02/21/17 02/22/17 02/23/17 05:59 05:59 05:59 Intake Total 2815 850 Output Total 1620 750 Balance 1195 100 - Physical Exam Constitutional: no apparent distress, not in pain, obese Eyes: PERRL Ears, Nose, Mouth, Throat: hearing normal Cardiovascular: regular rate and rhythym, no murmur, rub, or gallop Respiratory: no respiratory distress, reduced air movement Gastrointestinal: normoactive bowel sounds Skin: other (right lower ext in brace) Musculoskeletal: generalized weakness Neurologic: AAOx3 Psychiatric: interacting appropriately ICD10 Worksheet Patient Problems: Problems Problem Status Onset Lumbar degenerative disc disease Acute Tibial plateau fracture, right Acute Arthrodesis status Chronic Cervical radiculitis Chronic
[2017-02-22] MEDS: MELATONIN 3 MG TAB PO SCH (20:27)
[2017-02-23] MEDS: oxyCODONE IR 5 MG TAB PO PRN ×7 (02:19→21:31)
[2017-02-23 04:51] LABS: % IMMATURE GRANULYOCYTES 0.3 % (0.0-1.1); ABSOLUTE IMMATURE GRANULOCYTES 0.03 10^3/uL (0.00-0.10); ADD DIFF? NO; ADD MORPH? NO; ADD SCAN? NO; ATYPICAL LYMPHOCYTE FLAG 0 (0-99); FRAGMENT RBC FLAG 0 (0-99); HEMATOCRIT 28.8 % (38.0-47.0); HEMOGLOBIN 9.3 g/dL (12.6-16.3); LEFT SHIFT FLG 0 (0-99); LIPEMIA HEMOLYSIS FLAG 80 (0-99); MEAN CELL HEMOGLOBIN 30.5 pg (27.9-34.1); MEAN CELL HEMOGLOBIN CONCENTR. 32.3 g/dL (32.4-36.7); MEAN CELL VOLUME 94.4 fL (81.5-99.8); MEAN PLATELET VOLUME 10.2 fL (8.7-11.7); PLATELET CLUMPS FLAG 0 (0-99); PLATELET COUNT 297 10^3/uL (150-400); RED BLOOD CELL COUNT 3.05 10^6/uL (4.18-5.33); RED CELL DISTRIBUTION WIDTH 13.2 % (11.5-15.2)
[2017-02-23 05:00] LABS: ANION GAP 7 mEq/L (8-16); CALCIUM 8.8 mg/dL (8.5-10.4); CARBON DIOXIDE 35 mEq/l (22-31); CHLORIDE 96 mEq/L (97-110); CREATININE 0.8 mg/dL (0.6-1.0); GLOMERULAR FILTRATION RATE > 60; GLUCOSE 95 mg/dL (70-100); POTASSIUM 4.2 mEq/L (3.5-5.2); SODIUM 138 mEq/L (134-144)
[2017-02-23] MEDS: ACETAMINOPHEN 325 MG TAB PO SCH ×3 (05:15→17:33)
[2017-02-23] MEDS: PARoxetine HCL 20 MG TAB PO SCH (08:32)
[2017-02-23] MEDS: GABAPENTIN 300 MG CAP PO SCH ×3 (08:32→21:31)
[2017-02-23] MEDS: FAMOTIDINE 20 MG TAB PO SCH ×2 (08:33→20:35)
[2017-02-23] MEDS: metFORMIN HCL 500 MG TAB PO SCH (08:33)
[2017-02-23] MEDS: LISINOPRIL 20 MG TAB PO SCH ×2 (08:33→08:38)
--- NOTE | 2017-02-23 08:33 | WOCRNPDOC ---
WOCRN Advanced Assessment Note - Skin Integrity Problem, Advanced Assess Right Lateral Leg Dressing Type: Xeroform Exudate Amount: Scant Exudate Color: Reddish/Yellow Exudate Characteristic(s): Serosanguinous Integumentary Issue Intervention: Dressing Applied Samantha Wound Tissue: Erythema (discrete) Samantha Wound Swelling: Mild Wound Bed Color: Red, Yellow (some adhered slough in most proximal wound) Wound Bed Constitution: Red/[place] - Non Granular Tissue, Adhered Slough (in most proximal wound) Wound Edges: Well Defined Site Measurement - Head-to-Toe Length X Width X Depth (cm): R lateral proximal upper leg (upper thigh): 0.5cmx0.4gxc4ps @ 4 o'clock. R lateral distal upper leg (lower thigh): 0.4cmx0.4cmx1.4cm @ 4 o'clock. R lateral proximal lower leg : 0.5cmx0.3cmx0.5cm. R lateral distal lower le.5cmx0.4cmx0.8cm Skin Integrity Problem Comment: Four, discrete wounds noted on the lateral aspect of patient's R lateral leg, linear, from previous external fixation device. The deepest wound is on the R proximal upper leg (R upper thigh), which tunnels 4cm at 4 o'clock. This wound also has some adhered slough at the wound opening. There is mild erythema and swelling in the immediate periwound tissue of all four wounds, discrete, no induration observed. Plan is to pack the wounds daily using 1/4 inch Algidex Ag, which is impregnated w/ silver to confer an antimicrobial benefit. The two wounds on the R lower leg, which are more shallow, are also being packed w/ Puracol Ag collagen. Dressing changes daily until wounds too shallow to pack. Report given to Staff RNs Zenaida and Millicent , and wound care supplies left in patient's room.
[2017-02-23] MEDS: RIVAROXABAN 10 MG TAB PO SCH (08:34)
[2017-02-23] MEDS: CYCLOBENZAPRINE 10 MG TAB PO PRN ×2 (08:34→17:33)
[2017-02-23] MEDS: HYDROCHLOROTHIAZIDE 25 MG TAB PO SCH ×2 (08:35→08:38)
[2017-02-23] MEDS: SENNOSIDES/DOCUSATE SODIUM TAB PO SCH ×2 (09:51→20:35)
--- NOTE | 2017-02-23 10:32 | SOAPPROG ---
SOAP Progress Note Assessment/Plan: Assessment/Plan:POD#2 s/p external fixator removal and ORIF Right tibial plateau bicondylar fracture. Continue oral pain management Continue SCD's/AGA's Continue PT/OT-await clearance to proceed with discharge process Continue Xarelto for VTE prophylaxis Wound care to follow pt., initial assessment was done this AM. 4 ulcer-like, open wounds are evaluated and dressed by wound care. Dressing change to incisions completed by me today, with clean webril and new jesús wrap applied. Await information from Case Management regarding rehab facility to discharge pt. to. Begin CPM machine today once appropriate padding is received. Subjective: Pt. feeling good form a pain standpoint, managing pain with oral medications. No fevers, RODRIGUEZ, CP, SOB, calf pain, N/T of extremities. Has wounds from ex fix which are somewhat painful, wound care is evaluating. Objective: Pt. is alert, calm, resting comfortably in NAD. Respirations unlabored. Pt. is DNVI in BLE. Calves soft, NTTP. Surgical incisions appear to be dry, intact with no surrounding redness, warmth or discharge. 4 open wounds, ulcer appearance, 2 above the incisions and 2 below the incisions are without redness, warmth or induration. Plan: 02/23/17 09:11 Objective: Vital Signs Temp Pulse Resp BP Pulse Ox 36.7 C 74 18 120/69 93 02/23/17 07:23 02/23/17 07:23 02/23/17 07:23 02/23/17 08:38 02/23/17 07:23 Laboratory Results 02/23/17 04:34 02/23/17 04:34 02/22/17 02/23/17 02/24/17 05:59 05:59 05:59 Intake Total 2815 1270 Output Total 1620 1850 200 Balance 1195 -580 -200 ICD10 Worksheet Patient Problems: Problems Problem Status Onset Lumbar degenerative disc disease Acute Tibial plateau fracture, right Acute Arthrodesis status Chronic Cervical radiculitis Chronic
--- NOTE | 2017-02-23 13:54 | HOSPPROG ---
Hospitalist Progress Note Assessment/Plan: patient is a 66 y/o female who had an acute tibial fracture from a fall. She was here approximately a week ago. Initally she had exteranl fixation placemnt and then on this stay, underwent an ORIF. *Tibial plateau fx -s/p ORIF -NWB to RLE -having significant pain today after getting back to bed *HTN -bp 107/68 *Hypoxemia -on 1.5 liters -likely postop atelectasis *hyponatremia -resolved *Borderline diabetes -glucose stable *Leukocytosis -resolved *anemia -following *DVT prophylaxis: Xarelto *plan: should be able to go rehab soon Subjective: Danuta is c/o severe pain to her rle. Just finished PT. Objective: Vital Signs Temp Pulse Resp BP Pulse Ox 36.9 C 79 16 107/68 94 02/23/17 12:00 02/23/17 12:00 02/23/17 12:00 02/23/17 12:00 02/23/17 12:00 Laboratory Results 02/23/17 04:34 02/23/17 04:34 02/22/17 02/23/17 02/24/17 05:59 05:59 05:59 Intake Total 2815 1270 450 Output Total 1620 1850 500 Balance 1195 -580 -50 - Physical Exam Constitutional: chronically ill appearing, obese, uncomfortable, No not in pain Eyes: PERRL Ears, Nose, Mouth, Throat: hearing normal Respiratory: no respiratory distress Gastrointestinal: normoactive bowel sounds Skin: warm Musculoskeletal: other (right lower extremity w jesús wrap on and brace in place) Neurologic: AAOx3 Psychiatric: interacting appropriately, anxious (due to having pain) ICD10 Worksheet Patient Problems: Problems Problem Status Onset Lumbar degenerative disc disease Acute Tibial plateau fracture, right Acute Arthrodesis status Chronic Cervical radiculitis Chronic
--- NOTE | 2017-02-23 14:46 | ASMTCMCOM ---
CM Note CM Note Notes: [facility] Date Signed: 02/23/2017 02:46 PM Electronically Signed By:MARILEE Jansen
[2017-02-23] MEDS: MELATONIN 3 MG TAB PO SCH (20:35)
[2017-02-23 23:34] VITALS: RESP 16
[2017-02-24] MEDS: ACETAMINOPHEN 325 MG TAB PO SCH ×2 (00:02→05:40)
[2017-02-24] MEDS: CYCLOBENZAPRINE 10 MG TAB PO PRN (03:15)
[2017-02-24] MEDS: oxyCODONE IR 5 MG TAB PO PRN ×3 (03:15→10:10)
--- NOTE | 2017-02-24 07:33 | SOAPPROG ---
SOAP Progress Note Assessment/Plan: Assessment/Plan:POD#3 s/p external fixator removal and ORIF Right tibial plateau bicondylar fracture. Continue oral pain management Continue SCD's/AGA's Continue PT/OT-await clearance to proceed with discharge process Continue Xarelto for VTE prophylaxis Wound care to follow pt. for pin site care Await information from Case Management regarding rehab facility to discharge pt CPM machine Ortho stable and okay for discharge pending placement Subjective: Patient states that she is feeling pretty well. Her right knee has slightly more discomfort today since she was more active yesterday. Overall she is doing well. Objective: Vital Signs Temp Pulse Resp BP Pulse Ox 36.3 C 75 16 108/50 L 94 02/24/17 04:00 02/24/17 04:00 02/24/17 04:00 02/24/17 04:00 02/24/17 04:00 Laboratory Results 02/23/17 04:34 02/23/17 04:34 02/23/17 02/24/17 02/25/17 05:59 05:59 05:59 Intake Total 1270 1950 Output Total 1850 2000 Balance -580 -50 Physical exam of the right lower extremity: brace is in place, fitting well. Dressings are clean, dry and intact. Normal sensation to light touch in the RLE. Distal pulse present in the RLE. ICD10 Worksheet Patient Problems: Problems Problem Status Onset Lumbar degenerative disc disease Acute Tibial plateau fracture, right Acute Arthrodesis status Chronic Cervical radiculitis Chronic
[2017-02-24 07:37] VITALS: TEMP 98.4; O2SAT 93
[2017-02-24] MEDS: FAMOTIDINE 20 MG TAB PO SCH (08:31)
[2017-02-24] MEDS: GABAPENTIN 300 MG CAP PO SCH (08:31)
[2017-02-24] MEDS: RIVAROXABAN 10 MG TAB PO SCH (08:31)
[2017-02-24] MEDS: SENNOSIDES/DOCUSATE SODIUM TAB PO SCH (08:31)
[2017-02-24] MEDS: metFORMIN HCL 500 MG TAB PO SCH (08:32)
[2017-02-24] MEDS: PARoxetine HCL 20 MG TAB PO SCH (08:32)
[2017-02-24 09:30] VITALS: BP 92/64; PULSE 78
[2017-02-24] MEDS: HYDROCHLOROTHIAZIDE 25 MG TAB PO SCH (09:42)
[2017-02-24] MEDS: LISINOPRIL 20 MG TAB PO SCH (09:42)
--- NOTE | 2017-02-24 10:45 | PDIAF ---
- Diagnosis Diagnosis: status post right knee ORIF medial and lateral tibia plateau fractures Code Status: Full Code - Medication Management Discharge Medications: Medications to Continue on Transfer Hydrochlorothiazide [HCTZ (*)] 25 mg PO DAILY 06/22/14 [Last Taken 02/19/17] Lisinopril [Zestril 20 mg (*)] 20 mg PO DAILY 06/22/14 [Last Taken 02/20/17] PARoxetine HCL [Paroxetine HCl] 40 mg PO DAILY 06/22/14 [Last Taken 02/21/17] metFORMIN HCL [Glucophage 500 mg (*)] 500 mg PO DAILY 06/22/14 [Last Taken 02/21] Gabapentin [Neurontin 300 MG (*)] 600 mg PO TID 02/12/17 [Last Taken 02/21/17 10 :00] Tizanidine HCl 4 mg PO TID PRN 02/12/17 [Last Taken 02/20/17] Melatonin [Melatonin 3 MG (*)] 3 mg PO HS tab 02/16/17 [Last Taken 02/20/17] Nicotine Polacrilex [Nicorette gum (*)] 2 mg B PRN PRN gum 02/16/17 [Last Taken Unknown] Rivaroxaban [Xarelto 10mg (*)] 10 mg PO DAILY tab 02/16/17 [Last Taken 02/18/17 ] Acetaminophen [Tylenol 325mg (*)] 650 mg PO Q6HRS tab 02/24/17 [Last Taken Unknown] oxyCODONE IR [Oxycodone Ir (*)] 5 - 10 mg PO Q4HRS PRN #45 tab 02/24/17 [Last Taken Unknown] Discharge Medications: Refer to the Discharge Home Medication list for PRN reason. - Orders Services needed: Registered Nurse, Physical Therapy, Occupational Therapy Isolation Type: None Diet Recommendation: no restrictions on diet Diet Texture: Regular Texture Diet Talib Stockings Discontinue Date: must wear 14 days post op Sutures/[place] Site: will be removed at follow up appointment with Dr. Bay in 10-14 days post op - Follow Up Care Current Providers and Referrals: Lee Angela MD [Primary Care Provider] - Fletcher Bay MD [Medical Doctor] - follow up in 2 weeks (Follow up with Shanique in 10-14 days post op)
--- NOTE | 2017-02-24 10:50 | HOSPPROG ---
Hospitalist Progress Note Assessment/Plan: patient is a 66 y/o female who had an acute tibial fracture from a fall. She was here approximately a week ago. Initially she had external fixation and then on this stay, underwent an ORIF. First encounter, chart reviewed. D/W CM and RN. *Tibial plateau fx -s/p ORIF -NWB to RLE -pain better today *HTN -bp stable *Hypoxemia -on 1.5 liters -likely postop atelectasis *hyponatremia -resolved *Borderline diabetes -glucose stable *Leukocytosis -resolved *anemia -stable *DVT prophylaxis: Xarelto *plan: ok to go to rehab Subjective: Feeling well today. Had a busy morning. Pain stable. Objective: Vital Signs Temp Pulse Resp BP Pulse Ox 36.9 C 78 16 92/64 L 93 02/24/17 07:34 02/24/17 09:29 02/24/17 07:34 02/24/17 09:29 02/24/17 07:34 Laboratory Results 02/23/17 04:34 02/23/17 04:34 02/23/17 02/24/17 02/25/17 05:59 05:59 05:59 Intake Total 1270 1950 Output Total 1850 2000 Balance -580 -50 - Physical Exam Constitutional: no apparent distress, not in pain, obese Eyes: PERRL, anicteric sclera, EOMI Ears, Nose, Mouth, Throat: moist mucous membranes, hearing normal, ears appear normal Cardiovascular: No JVD, No tachycardia, No edema Respiratory: no respiratory distress, no rales or rhonchi, reduced air movement Gastrointestinal: normoactive bowel sounds, No tenderness, No ascites Skin: warm, normal color, No mottled Musculoskeletal: pain with ROM, muscular tenderness, generalized weakness Neurologic: AAOx3 Psychiatric: interacting appropriately, not anxious, not encephalopathic, thought process linear ICD10 Worksheet Patient Problems: Problems Problem Status Onset Cervical radiculitis Chronic Arthrodesis status Chronic Lumbar degenerative disc disease Acute Tibial plateau fracture, right Acute
--- NOTE | 2017-02-25 16:34 | ASDISCHSUM ---
Discharge Information Plan Status:SNF Medically Cleared to Leave:02/23/2017 Discharge Date:02/24/2017 12:29 PM CM D/C Disposition: ADT D/C Disposition:Longterm Facility Projected Discharge Date:02/24/2017 11:00 AM Transportation at D/C: Discharge Delay Reason: Follow-Up Date:02/24/2017 11:00 AM Discharge Slot: Final Diagnosis: Placement Information Referral Type:*[facility]NF Referral ID:[id number] Provider Name:[facility] Address 1:[address] Address 2: City:[place] Selection Factors: State:[place] Patient Contact Information Contact Name:ELEUTERIO Relationship:Son Address:[address] City:[place] Alternate Phone: State/Zip Code:[place] [address] Email: Financial Information Financial Class: Primary Plan Desc:MEDICARE INPATIENT Primary Plan Number:[id number] Secondary Plan Desc:MEDICA[place] Secondary Plan Number:[id number] Assessment Information [facility] CM Progress Note CM Note CM Note Notes: Pt admitted from [facility] for planned surgery for R tibial plateau fx. She normally lives independantly. Met w/pt to discuss; most likely dc back to [facility] when medically ready. Karma from [facility] will come today to meet w/pt and answer questions regarding Medicare/Medicaid coverage. Pt has supportive son who is local. CM will follow. Date Signed: 02/22/2017 10:32 AM Electronically Signed By:Cherelle Smith RN [facility] CM Progress Note CM Note CM Note Notes: Referral sent to [facility]. Date Signed: 02/23/2017 02:46 PM Electronically Signed By:MARILEE Jansen Intervention Information
== END 2017-02-24 12:29 | DRG 493 ==
LOC: F3N 11:52
PROVIDERS: ADMIT Orthopaedic Surgery; ATTEND Orthopaedic Surgery
PROC: 0QPGX5Z Removal of External Fixation Device from Right Tibia, External Approach (ICD-10-PCS; principal; 2017-02-21 13:45)
PROC: 0QSG04Z Reposition Right Tibia with Internal Fixation Device, Open Approach (ICD-10-PCS; principal; 2017-02-21 13:45)
DX: S82.141A Displaced bicondylar fracture of right tibia, initial encounter for closed fracture (principal); W19.XXXA Unspecified fall, initial encounter; R09.02 Hypoxemia; E87.1 Hypo-osmolality and hyponatremia; I10 Essential (primary) hypertension; J44.9 Chronic obstructive pulmonary disease, unspecified; E78.5 Hyperlipidemia, unspecified; I25.10 Atherosclerotic heart disease of native coronary artery without angina pectoris; I25.2 Old myocardial infarction; E66.01 Morbid (severe) obesity due to excess calories; Z68.41 Body mass index [BMI] 40.0-44.9, adult; R73.03 Prediabetes; Z87.891 Personal history of nicotine dependence; Z98.1 Arthrodesis status
CPT/HCPCS: 97161-GP; 97166-GO; 97530-GP; 97535-GO; C1713; G8978-GP-CM; G8979-GP-CK; G8987-GO-CL; G8988-GO-CI; J0171; J0690; J1100; J1885; J2370; J2405; J2704; J2710; L1832

== ENCOUNTER 2018-03-23 08:58 | Inpatient (IN) | payer OTHER, MEDICAID ==
--- NOTE | 2018-03-23 09:24 | EDPHY ---
H & P Stated Complaint: got dizzy and fell 2 days ago L chest/Rib pain and SOB Time Seen by Provider: 03/23/18 09:11 - Personal History Tetanus Vaccine Date: 2012 - Medical/Surgical History Hx Asthma: Yes Hx Chronic Respiratory Disease: Yes Hx Diabetes: Yes Hx Cardiac Disease: Yes Hx Renal Disease: No Hx Cirrhosis: No Hx Alcoholism: No Hx HIV/AIDS: No Hx Splenectomy or Spleen Trauma: No Other PMH: CT, HTN, HYPERLIPIDEMIA, COPD, DEPRESSION, OBESITY/neck fusion - Social History Smoking Status: Former smoker Constitutional: Initial Vital Signs Temperature (C) 36.5 C 03/23/18 09:04 Heart Rate 80 03/23/18 09:04 Respiratory Rate 18 03/23/18 09:04 Blood Pressure 120/67 03/23/18 09:04 O2 Sat (%) 85 L 03/23/18 09:04 O2 Delivery Mode Nasal Cannula O2 (L/minute) 40 Allergies/Adverse Reactions: acetaminophen [From Percocet] Allergy (Verified 03/23/18 09:03) oxycodone [From Percocet] Allergy (Verified 03/23/18 09:03) Home Medications: Medication Instructions Recorded Albuterol [Proventil Inhaler HFA 1 - 2 puffs IH Q4H PRN 03/23/18 (*)] Diazepam [Valium 5 MG (*)] 5 mg PO BID PRN 03/23/18 Gabapentin [Gabapentin] 600 mg PO TID 03/23/18 Hydrochlorothiazide [HCTZ (*)] 25 mg PO DAILY 03/23/18 Ibuprofen [Motrin (*)] 400 mg PO BID PRN 03/23/18 Lisinopril [Lisinopril] 20 mg PO DAILY 03/23/18 PARoxetine HCL [Paxil 30mg (*)] 60 mg PO DAILY 03/23/18 tiZANidine HCL [Zanaflex] 4 mg PO TID 03/23/18 traMADol HCL [Tramadol HCl] 50 mg PO Q6 03/23/18 Medical Decision Making - Diagnostics Imaging Results: Imaging Impressions Ribs w/Chest X-Ray 03/23/18 09:19 Impression: 1. Small left and tiny right pneumothoraces with extensive subcutaneous emphysema bilaterally, limiting the study. 2. Probable acute left 2nd through 7th rib fractures. 3. Probable pneumomediastinum. Findings discussed with Jj Nevarez MD on March 23, [address] 03/23/18 09:58 Impression: 1. Flail chest segment with multiple left rib fractures, with two site fractures involving the 5th through 9th rib fractures and lateral left 3rd through 4th rib fractures. 2. Small left pneumothorax with no definite right pneumothorax, with extensive subcutaneous emphysema and pneumomediastinum contributing to the apparent right pneumothorax seen on chest radiograph. 3. Right axillary adenopathy. This could be related to lymphoproliferative disorder, metastases, reactive changes, or other etiology. If this has not been previously assessed at an outside institution, biopsy is recommended. 4. Additional findings, as above. Findings discussed with Jj Nevarez MD on March 23, 2018 at 1115 hours. Imaging: Discussed imaging studies w/ call center supervisor Radiologist, I viewed and interpreted images myself ED Course/Re-evaluation: CHIEF COMPLAINT: Rib pain HISTORY OF PRESENT ILLNESS: The patient is a 67 y/o female with a history of COPD, hypertension, and CT complaining of left-sided rib pain and chest "swelling" since a fall 3 days ago. She sometimes uses a walker at home and on Sunday she felt unsteady while standing in the kitchen. It is not uncommon for her to feel "anxious" while trying to get around with her walker sometimes and feels that is what was happening Sunday. She was unable to get to a chair and fell to the ground onto her left side. She denies preceding weakness, lightheadedness, chest pain, or dyspnea. She did not strike her head or lose consciousness. She was assessed by [facility] after the fall and had a chest x-ray that showed 4 broken ribs. Since then she's had worsening shortness of breath and swelling around her upper left chest, but primarily came in due to significant left-sided chest pain. She feels slightly better when lying supine. Movement and position changes aggravate pain. She denies fever, cough, abdominal pain, urinary symptoms, weakness, paresthesias, headache. REVIEW OF SYSTEMS: A comprehensive 10 system review of systems is otherwise negative aside from elements mentioned in the history of present illness and medical decision making. PHYSICAL EXAM: HR, BP, O2 Sat, RR. Temp noted. SpO2 85% on room air. General Appearance: Alert, well hydrated, appropriate, and non-toxic appearing. Head: Atraumatic without scalp tenderness or obvious injury Eyes: Pupils equal, round, reactive to light and accommodation, EOMI, no trauma , no injection. Nose: Atraumatic, no rhinorrhea, clear. Throat: Mucus membranes moist. Neck: Supple, non-tender, no lymphadenopathy. Respiratory: No retractions, no distress, no wheezes, and no accessory muscle use. Lungs are clear to auscultation bilaterally. Chest: Subcutaneous air along left upper chest, tenderness along left anterior chest. Cardiovascular: Regular rate and rhythm, no murmurs, rubs, or gallops. Good capillary refill all extremities. Gastrointestinal: Abdomen is soft, non-tender, non-distended, no masses, no rebound, no guarding, no peritoneal signs. Musculoskeletal: Normal active ROM of all extremities, atraumatic. Neurological: Alert, appropriate, and interactive. The patient has non-focal cranial nerves, motor, sensory, and cerebellar exam. Skin: No rashes, good turgor, no nodules on palpation. PAST MEDICAL HISTORY: CT - no intervention, hypertension, obesity, COPD, depression PAST SURGICAL HISTORY: Neck surgery 2014. Lumbar fusion. SOCIAL HISTORY: Lives in [place]. Retired. PCP: Dr. Marielena Johnson DIAGNOSTICS/PROCEDURES/CRITICAL CARE TIME: Chest x-ray: Diffuse subcutaneous air. Multiple left rib fractures. Chest CT: Flail chest segment with multiple left rib fractures, with two separate fractures involving the 5th through 9th rib fractures and lateral left 3rd through 4th rib fractures. Diffuse subcutaneous air. Critical care time spent by me, Dr. Nevarez, exclusively with this patient was 35 minutes, exclusive of PA time and exclusive of procedures. The organ system at risk was pulmonary, musculoskeletal. Time spent in serial assessments of the patient, consideration of interventions, surgery, radiology, and enterostomal therapy nurse consultations, and review of imaging. DIFFERENTIAL DIAGNOSIS: The differential diagnosis for the patient's shortness of breath and hypoxemia included but was not limited to pneumonia, myocardial infarction, acute mountain sickness, high altitude pulmonary edema, congestive heart failure, and pulmonary embolus. MEDICAL DECISION MAKING: This is a 67 y/o female who presents with left-sided rib pain and chest "swelling." On exam, she has subcutaneous air on palpation of her chest with left-sided rib tenderness. She is hypoxemic around 85% on room air. Concern for pneumothorax. Plan for IV, ISTAT, chest x-ray. Chest x-ray shows significant subcutaneous air and left-sided rib fractures. Difficult to evaluate for pneumothorax. Chest CT ordered for better evaluation. 100mcg IV Fentanyl administered for pain. Consulted with Dr. Núñez, surgery. He will assess in the ED after chest CT. 100mcg IV Fentanyl administered for pain. CT shows left-sided flail chest, small pneumothorax, diffuse subcutaneous air. Spoke with hospitalist service. Dr. Durbin will consult during admission. - Data Points Laboratory Results: 03/23/18 09:35 POC Hgb 14.3 gm/dL gm/dL (12.6-16.3) POC Hct 42 % % (38-47) POC Sodium 138 mEq/L mEq/L (135-145) POC Potassium 4.8 mEq/L mEq/L (3.3-5.0) POC Chloride 102 mEq/L mEq/L (97-110) POC BUN 33 mg/dL H mg/dL (7-23) POC Creatinine 1.1 mg/dL H mg/dL (0.6-1.0) POC Glucose 116 mg/dL H mg/dL (70-100) Medications Given: Acetaminophen (Tylenol) 1,000 mg PO Q8H GABRIEL Stop: 09/19/18 13:59 Last Admin: 03/23/18 14:17 Dose: Not Given Cyclobenzaprine HCl (Flexeril) 10 mg PO TID GABRIEL Stop: 09/19/18 15:59 Last Admin: 03/23/18 14:11 Dose: 10 mg Miscellaneous Medication (Icy Hot Lidocaine/Menthol 4%/1% Patch) 1 patch TD DAILY GABRIEL Stop: 09/19/18 13:29 Last Admin: 03/23/18 14:12 Dose: 1 patch Discontinued Medications Fentanyl (Sublimaze) 100 mcg IVP EDNOW ONE Stop: 03/23/18 10:28 Last Admin: 03/23/18 10:30 Dose: 100 mcg Fentanyl (Sublimaze) 100 mcg IVP EDNOW ONE Stop: 03/23/18 12:07 Last Admin: 03/23/18 12:08 Dose: 100 mcg Gabapentin (Neurontin) 600 mg PO TID GABRIEL Stop: 09/19/18 15:59 Last Admin: 03/23/18 14:12 Dose: 600 mg Ketorolac Tromethamine (Toradol) 15 mg IVP Q6HRS GABRIEL Stop: 03/28/18 17:59 Last Admin: 03/23/18 14:14 Dose: 15 mg Point of Care Test Results: Chemistry 03/23/18 09:35 POC Sodium 138 mEq/L mEq/L (135-145) POC Potassium 4.8 mEq/L mEq/L (3.3-5.0) POC Chloride 102 mEq/L mEq/L (97-110) POC BUN 33 mg/dL H mg/dL (7-23) POC Creatinine 1.1 mg/dL H mg/dL (0.6-1.0) POC Glucose 116 mg/dL H mg/dL (70-100) ISTAT H&H 03/23/18 09:35 POC Hgb 14.3 gm/dL gm/dL (12.6-16.3) POC Hct 42 % % (38-47) Departure - Departure Disposition: [facility] Inpatient Acute Clinical Impression: Hypoxemia Flail chest Qualifiers: Encounter type: initial encounter Fracture type: closed Qualified Code(s): S22.5XXA - Flail chest, initial encounter for closed fracture Subcutaneous emphysema Qualifiers: Encounter type: initial encounter Qualified Code(s): T79.7XXA - Traumatic subcutaneous emphysema, initial encounter Condition: Fair Referrals: ANALIA LAUGHLIN [Other] - As per Instructions Report Scribed for: Jj Nevarez Report Scribed by: Kerrie Means Date of Report: 03/23/18 Time of Report: 11:15
[2018-03-23] MEDS ORDERED: IOPAMIDOL (ISOVUE 370) 100 ML BTL IV ONE (10:20)
[2018-03-23] MEDS ORDERED: fentaNYL 100 MCG/2 ML INJ IVP ONE ×2 (10:27→12:06)
[2018-03-23] MEDS ORDERED: ONDANSETRON 4 MG/2 ML VIAL IVP PRN (13:05)
[2018-03-23] MEDS ORDERED: ALBUTEROL 60 PUFFS/8 GM MDI IH PRN (13:13)
[2018-03-23] MEDS ORDERED: LR 1,000 ML IV SCH (13:30)
--- NOTE | 2018-03-23 13:30 | ASMTCMCOM ---
CM Note CM Note Notes: CM reviewed chart for d/c planning/ Pt is a 67 y/o female with obesity, COPD, HTN, hyperlipidemia and depression. 2 days ago she fell while using her walker and broke multiple left ribs. She came to the ED due to SOB and left chest pain. PT/OT and rehab evals have been ordered. CM will follow for recommendations. D/C Plan: TBD Date Signed: 03/23/2018 01:29 PM Electronically Signed By:Sita Barrios
[2018-03-23] MEDS ORDERED: HYDROmorphONE/DILAUDID 1 MG/ML INJ ONE (14:04)
[2018-03-23] MEDS ORDERED: KETOROLAC 15 MG/1 ML SDV ONE (14:05)
[2018-03-23] MEDS ORDERED: HYDROmorphONE/DILAUDID 1 MG/ML INJ IVP PRN (14:08)
[2018-03-23] MEDS: LIDOCAINE 4%/MENTHOL 1% PATCH TD SCH (14:12)
[2018-03-23] MEDS: ACETAMINOPHEN 325 MG TAB PO SCH ×2 (14:17→21:06)
[2018-03-23] MEDS: GABAPENTIN 300 MG CAP PO SCH ×2 (14:20→21:15)
[2018-03-23] MEDS: KETOROLAC 15 MG/1 ML SDV IVP SCH ×2 (14:24→20:58)
[2018-03-23] MEDS ORDERED: DIAZEPAM 5 MG TAB PO PRN (14:49)
[2018-03-23] MEDS ORDERED: CYCLOBENZAPRINE 10 MG TAB PO SCH (16:00)
[2018-03-23] MEDS ORDERED: GABAPENTIN 300 MG CAP PO SCH (16:00)
--- NOTE | 2018-03-23 16:57 | GHP ---
DATE OF ADMISSION: 03/23/2018 ADMITTING DIAGNOSES: 1. Fall 3 days ago. 2. Fracture left posterior ribs, 5 through 9, and left anterolateral ribs, 3 through 9, with extensive subcutaneous emphysema and small pneumothorax. HISTORY: The patient is a 67-year-old female who fell last year, fracturing her tibia and fibula. This was originally treated with external fixator, then an ORIF. She has been using a walker. Three days ago she was in her kitchen and felt slightly dizzy. She fell with her four-wheel walker onto her left chest. She was lying down for approximately 20 minutes and was finally able to get up. She called [facility]" which came out to evaulate her. They were unable to get an x-ray that day and the next day an x-ray was obtained in her home. She had requested pain medications but those had not been delivered, according to the patient. She never received a report on the chest x-ray. She had increasing pain today, which prompted her to ask a neighbor to bring her to the hospital. On presentation to the hospital, she is seen by Dr. Jj Nevarez (ER). She had extensive subcutaneous emphysema and did require oxygen supplementation. Chest x-ray confirmed the extensive subcutaneous emphysema. It was difficult to determine the true extent of the injury and a CAT scan was performed. The CAT scan shows the above-mentioned findings, as well as a right axillary lymphadenopathy. Patient does complain of a slight sore throat. 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 She does vape daily. She started smoking at age 13 and smokes a peak of half-pack a day. She uses half of a vape pen a day. There is no history of alcohol use for the last 17 years. ALLERGIES: She has no known drug allergies. She has a questionable allergy to Percocet. She is unclear how that is manifested. MEDICATIONS: Include an albuterol inhaler 1-2 puffs every 4 hours, gabapentin 600 mg 3 times a day, tizanidine has been used in the past, but not currently. She takes lisinopril 20 mg daily, takes hydrochlorothiazide 25 mg daily, she takes paroxetine 60 mg daily. She has been using tramadol in the past, but is not currently using it. PAST SURGICAL HISTORY: Include a the ORIF of a right tibia and fibula as mentioned above. She has had her tonsils removed. She has had both a cervical and a lumbar surgery for spinal stabilization. REVIEW OF SYSTEMS: She has no history of rheumatic fever, tuberculosis, or hepatitis. She did have 1 transfusion with her back surgery. She has been hypertensive for approximately 10 years. She wears lenses for visual correction. She has a history of 1 concussion. She complained to her family physician several years ago that she would get nauseous and sweaty when climbing stairs. Evaluation at that time reportedly showed by EKG that reportedly had changes consistent with old myocardial infarction. No further workup was done at that time. She has tinnitus in her right ear. She has dental crowns. She currently weighs 190 pounds, but has always had a problem with her weight. She can go up 1 flight of stairs and can walk one-half mile. She is aware of the nodes in the right axilla and, in fact, has undergone biopsy with negative results in the past. PHYSICAL EXAMINATION: VITAL SIGNS: Blood pressure is 128/79, heart rate of 86, she is afebrile, respirations are 19, on 4 L/min her saturations are 94%. GENERAL: She is pleasant, awake, and alert. She is oriented to person, place, and time. GCS is 15. There is extensive subcutaneous emphysema. HEAD: Skull is normocephalic and atraumatic. There are no signs of skull injury as manifested by Olivo sign or raccoon eyes. She has normal dental occlusion. Pupils are equal, round, reactive to light and accommodation. Extraocular movements are intact. NEUROLOGIC: She is oriented to person, place, and time. GCS is 15. There are no focal lateralizing neurologic findings. NECK: Nontender. There are no carotid bruits identified. Thyroid is not enlarged. LYMPHATICS: No cervical, supraclavicular, axillary, or inguinal lymphadenopathy. BACK: There is a distinct scar and depression where her lumbar surgery was. Her spine is nontender to palpation. Her back is unremarkable. LUNGS: Clear to auscultation. CARDIAC: Shows S1, S2 to be normal. There is a normal split of S2 without murmurs, rubs, or gallops. She has a normal rhythm by monitor. ABDOMEN: Generous with hypoactive bowel sounds present. PELVIS: Stable to AP and lateral compression. EXTREMITIES: Lower extremities are unremarkable. No evidence of bruising or injury. Note is made, she has not moved her bowels in 2 days and does use MiraLAX. PLAN: To admit her for chest physiotherapy and observation. I do not feel she needs a chest tube at this point for the very tiny pneumothorax. I do not feel that she needs a rib stabilization in spite of the large flail segment. We will continue to observe and reassess. /[id number]/MODL MTDD
[2018-03-23] MEDS ORDERED: KETOROLAC 15 MG/1 ML SDV IVP SCH (18:00)
[2018-03-23] MEDS: traMADol 50 MG TAB PO SCH ×2 (18:33→23:46)
[2018-03-23] MEDS ORDERED: PATCH REMOVAL 1 EA PATCH TD SCH (21:00)
[2018-03-24] MEDS: KETOROLAC 15 MG/1 ML SDV IVP SCH ×2 (02:03→08:31)
--- NOTE | 2018-03-24 03:35 | GCON ---
INTERNAL MEDICINE CONSULTATION DATE OF CONSULTATION: 03/23/2018 CHIEF COMPLAINT: Chest pain. HISTORY OF PRESENT ILLNESS: The patient is a 67-year-old female, who fell at home 3 days ago. She w as dizzy just prior to the fall. She fell onto her left chest wall. She immediately had acute onset of severe left rib pain and shortness of breath. She uses a walker at baseline and is somewhat unst shane. The fall occurred while she was trying to get from her walker to a chair. She tried to tough it out at home and was finally urged by her primary care doctor and friends and family to come to the emergency room today. She describes it as severe 7/10 left-sided chest pain that radiates to her back. It is worse with a deep inspiration. She does not normally wear home oxygen. She recently decided to wean herself off blood pressure pills. Her primary care doctor advised again st this, but she decided to do it anyway. She quit cold turkey all of her blood pressure pills last week. When I asked her what may have caused her dizziness she blames her recent situation with her b lood pressure; although, she does not know whether or not she thinks it's too low or too high is the problem. Typically when she gets dizzy she will sit for a little while and the dizziness episode dejan l pass and she can manage it, but on this occasion she did not do that in time. She does not watch h er blood pressure at home. She does not know how it has been running; although, blood pressure has b een relatively low since she has arrived here despite no medications. PAST MEDICAL HISTORY: 1. Hypertension. 2. Coronary artery disease, status post AK. 3. Obesity. PAST SURGICAL HISTORY: Cervical and lumbar fusion. MEDICATIONS: Please see computer record for full detailed list. ALLERGIES: No known drug allergies. SOCIAL HISTORY: She smoked briefly when she was young. No alcohol. She lives alone. She has 2 son s, 1 lives in [facility], the other 1 lives in [facility]. REVIEW OF SYSTEMS: Complete review of systems obtained. Review of systems negative for constitution al, HEENT, GI, pulmonary, cardiovascular, , hematology, skin, endocrine, psych, except for positive s as in HPI. FAMILY HISTORY: Reviewed, noncontributory to presenting complaint. PHYSICAL EXAMINATION: GENERAL: This is a well-developed, well-nourished female, looking uncomfortab le due to chest wall situation, getting breathlessness with conversation. VITAL SIGNS: Temperature is 36.6, pulse 87, blood pressure 119/80, saturating 85% on room air, 96% on 4 L. Respiratory rate 2 1. EYES: Normal conjunctivae, pupils react to light. ENT: Normal ears and nose. Hearing intact. Normal teeth. Oropharynx moist. NECK: Trachea midline. No thyromegaly. She has subcutaneous emp hysema going up her right neck to her face. CHEST: Increased respiratory effort with increased work of breathing. LUNGS: Clear to auscultation bilaterally. Subcutaneous emphysema noted. CARDIOVASC ULAR: Regular rhythm. No murmur. No lower extremity edema. ABDOMEN: Soft, nontender. No hepatos plenomegaly. SKIN: Warm, dry, intact without rash. MUSCULOSKELETAL: No cyanosis or clubbing. Str ength 5/5 upper and lower extremities. NEURO: Cranial nerves intact, normal sensation to light touc h. PSYCHIATRIC: Alert and oriented x3. Normal affect. Normal judgment. Normal memory. DATA REVIEWED: Labs: Hematocrit is 42. Sodium 138, potassium 4.8, chloride 102, bicarb 33, creatin ine 1.1. Glucose 116. CT scan of the chest shows a flail chest with fractures of the 5th through 9th ribs. She also has la teral left 3rd and 4th rib fractures with a small left pneumothorax with subcutaneous emphysema. The re is incidental note of right axillary adenopathy. This case was discussed with Dr. Wilton stover internal medicine consultation request. ASSESSMENT/PLAN: 1. Rib fractures x7 with flail chest. This is a high-risk situation statistically for her for progr essing to acute respiratory failure. However, it is reassuring that she looks okay now 3 days out fr om her initial injury. We will prescribe continuous pulse ox. We will prescribe adequate pain contr ol currently being given in the form of IV Dilaudid. We will start her on the respiratory therapy ri b fracture protocol including EzPAP treatments. If her pain proves to be difficult to control could consider anesthesia consultation for epidural. 2. Acute respiratory failure. She presents with increased work of breathing with room air saturatio ns 85% on room air. She will require a high degree of respiratory support. This is discussed above. 3. Small left pneumothorax with extensive subcutaneous emphysema. [facility]. 4. Hypertension. She self-discontinued all of her blood pressure pills last week as she desires to be off medications. Her blood pressure looks reasonable at this time. We will continue to hold her blood pressure medications and monitor closely while she is here. 5. Right axillary adenopathy. This should be followed up as an outpatient for biopsy. She probably needs a mammogram. 6. Obesity: BMI 31. This also is an additional risk factor for respiratory failure given her presen tation of flail chest. 7. Code status: Do not resuscitate. This was confirmed with the patient. She has very strong ziggy re for no resuscitation. 8. Deep vein thrombosis prophylaxis: She is high risk. She is appropriately on subcutaneous Loveno x. I thank you very much for this consultation. Hospitalist Medicine will continue to follow. /[id number]/MODL
[2018-03-24] MEDS: oxyCODONE IR 5 MG TAB PO PRN ×2 (04:49→09:42)
[2018-03-24 05:14] LABS: PLATELET COUNT 248 10^3/uL (150-400)
[2018-03-24] MEDS: traMADol 50 MG TAB PO SCH ×3 (05:49→17:24)
[2018-03-24] MEDS: GABAPENTIN 300 MG CAP PO SCH ×2 (05:50→14:43)
[2018-03-24] MEDS: ACETAMINOPHEN 325 MG TAB PO SCH ×2 (05:50→15:06)
[2018-03-24] MEDS: LIDOCAINE 4%/MENTHOL 1% PATCH TD SCH (08:30)
[2018-03-24] MEDS ORDERED: LISINOPRIL 20 MG TAB PO SCH (09:00)
[2018-03-24] MEDS ORDERED: ENOXAPARIN 40 MG/0.4 ML SYR SC SCH (09:00)
[2018-03-24] MEDS ORDERED: HYDROCHLOROTHIAZIDE 25 MG TAB PO SCH (09:00)
[2018-03-24] MEDS ORDERED: POLYETHYLENE GLYCOL 3350 17 GM PKT PO SCH (09:00)
--- NOTE | 2018-03-24 10:50 | PDMN ---
Medical Necessity Medical necessity: Pt meets INPT criteria per MD as of 03/23/18 and [facility] M-545 Rib Fracture (fracture L posterior ribs 5 through 9, anterolateral ribs 3 through 9 with extensive emphysema and small pneumothorax, flail chest; est. LOS >2 MN).
--- NOTE | 2018-03-24 11:26 | TRAUMAPN ---
Trauma Progress Note Assessment/Plan: PAD#1 03/24/2018 Assessment: Pain control now good, PTX is now tiny, subcutaneous emphysema persists Plan: Observe today with possible discharge later today if she does well Subjective: I'm much better Objective: Vital Signs Temp Pulse Resp BP Pulse Ox 36.7 C 78 16 128/78 H 92 03/24/18 07:41 03/24/18 07:41 03/24/18 07:41 03/24/18 07:41 03/24/18 07:41 Laboratory Results 03/24/18 04:24 03/24/18 04:24 03/23/18 03/24/18 03/25/18 05:59 05:59 05:59 Intake Total 1900 Output Total 150 Balance 1750 Physical Exam - Physical Exam General Appearance: WD/WN, alert, no apparent distress Neck: other (extensive subcutaneous emphysema ) Respiratory: chest non-tender, lungs clear, normal breath sounds, other ( extensive subcutaneous emphysema) Cardiac/Chest: other (heart tones are quite distant ) Abdomen: normal bowel sounds, non-tender, soft Pelvic Exam: deferred Rectal: deferred Back: Normal inspection Skin: normal color, warm/dry Neuro/Psych: no motor/sensory deficits, alert, normal mood/affect, oriented x 3 Time Spent w/Patient (minutes): 25
[2018-03-24 11:44] VITALS: BP 104/59
[2018-03-24] MEDS ORDERED: HYDROmorphONE/DILAUDID 2 MG TAB PO PRN (12:31)
[2018-03-24] MEDS: IBUPROFEN 600 MG TAB PO SCH ×2 (12:44→16:28)
--- NOTE | 2018-03-24 14:49 | PDIAF ---
- Diagnosis Diagnosis: fx left ribs with flail segment Code Status: Do Not Resuscitate - Medication Management Discharge Medications: electronically signed and located in the Home Medication List. - Orders Services needed: Home Care, Registered Nurse, Physical Therapy, Occupational Therapy Home Care Face to Face: I certify that this patient was under my care and that I had the required [id number] encounter meeting the encounter requirements on the discharge day. My findings support the fact that the patient is homebound as defined in Home Care Face to Face Continued: CMS Chapter 7 Medicare Benefits Manual 30.1.1 , The condition of the patient is such that there exists a normal inability to leave home and consequently, leaving home would require a considerable and taxing effort. Isolation Type: None Diet Recommendation: no restrictions on diet Diet Texture: Regular Texture Diet Additional Instructions: use incentive spirometer 10x every hour that you are awake. Oxygen at 2 LPM by NC Avoid constipating foods: Bananas, rice, apple sauce or cheese. Your ribs should heal to a 95% strength level in 10 weeks. Avoid re-injury No nicotine use x 4 weeks. - Follow Up Care Current Providers and Referrals: ANALIA LAUGHLIN [Other] - As per Instructions Ton Gandara MD [Medical Doctor] - (follow up as needed in 2+ weeks. Call sooner if issues.)
--- NOTE | 2018-03-24 15:03 | PDHOMEO2F ---
Home Oxygen Face to Face Home Orders: I certify that a physician or a nurse practitioner or physician's biology research assistant has had a [id number] encounter with this patient on the date of this order due to the diagnosis listed, which relates to the primary reason the patient requires home oxygen. Alternative treatments have been tried, or considered, and deemed ineffective. It is anticipated that supplemental oxygen will result in improvement with treatment. Home oxygen qualifying diagnosis: left flail chest fx ribs 3-9 and 5-9 SpO2 on room air (%): 82 Frequency of home oxygen needed: continuous Home oxygen liters per minute: 2 Home oxygen delivery device: nasal cannula Concentrator: Yes E-tanks for mobility and back up: Yes If ordering portable O2, is the patient mobile in the home?: Yes I certify that, based on these findings, the home oxygen is medically necessary for this patient for the following length of time. Length of time home oxygen needed: 1 month
--- NOTE | 2018-03-24 15:04 | ASMTLACE ---
ALE Length of stay for Answers: 1 day current admission Acuity / Level of Answers: Yes Care: Did the patient have an inpatient admission? Comorbidities - select Answers: Chronic pulmonary disease all that apply Diabetes (uncontrolled or controlled) History of falls Other Notes: obesity, htn, cardiac disease # of Emergency department Answers: 1-2 visits in the last 6 months Social determinants Answers: Mental health diagnosis (anxiety, depression, pers onality disorders, etc.) Score: 15 Date Signed: 03/24/2018 03:03 PM Electronically Signed By:Vivi Gutierres RN
--- NOTE | 2018-03-24 15:05 | ASMTDCNOTE ---
Case Management Discharge Discharge Order Complete? Answers: Yes Patient to Obtain Answers: Independently Medications Transportation Arranged Answers: Family/Friends Faxed Final Orders Answers: Yes Discharge Comments Notes: Patient discharged home with [facility] (RN/PT/OT). She will f/u w her PCP next week. Daughter in law to transport home. Date Signed: 03/24/2018 03:04 PM Electronically Signed By:Vivi Gutierres RN
--- NOTE | 2018-03-25 00:17 | GDS ---
ADMITTING DIAGNOSIS: Extensive rib fractures, left chest (ribs 3 through 9 anteriorly and 5 through 9 posteriorly) with extensive subcutaneous emphysema and small pneumothorax. CONDITION AT DISCHARGE: Improved. DISPOSITION: Home. DIET RECOMMENDATIONS: There are no restrictions on her diet, but I do recommend that she avoid constipating foods such as bananas, rice, applesauce, and cheese. She will continue regular texture in her diet. MEDICATIONS ON DISCHARGE: Includes Tylenol 1000 mg every 8 hours scheduled, ibuprofen 200 mg every 6 hours scheduled, Dilaudid 2 mg 1-2 every 4 hours p.r.n. pain. She will use a Lidoderm patch over her rib fractures. She will continue her Valium 5 mg b.i.d. as needed for anxiety. She will use albuterol inhaler 1-2 puffs every 4 hours as needed. She will continue her tramadol 50 mg every 6, her Zanaflex 4 mg 3 times a day, her Paxil 60 mg daily, her lisinopril 20 mg daily, her hydrochlorothiazide 25 mg daily, and her gabapentin 600 mg daily. DISCHARGE INSTRUCTIONS: She will use her incentive spirometer 10 times an hour every hour that she is awake. She is to avoid constipating foods such as bananas, rice, applesauce, and cheese. She has been informed the rib should heal to a 95% strength level in 10 weeks, and she is to avoid situations where she might re-injure it. She is to avoid nicotine use for the next 4 weeks. She will follow up with Dr. Kimani Gandara as needed. She may follow up with family doctor Virginia Rodarte as well. HOSPITAL COURSE: The patient was admitted. This tiny pneumothorax which was identified on admission has now almost completely resolved. She still has extensive subcutaneous emphysema. In spite of the extent of injury that lead to an expectation of a multiple day admission, her pain became rapidly controlled. She feels comfortable and is now set for discharge. /[id number]/MODL MTDD
--- NOTE | 2018-03-25 13:37 | ASDISCHSUM ---
Discharge Information Plan Status: Medically Cleared to Leave: Discharge Date:03/24/2018 06:09 PM CM D/C Disposition: ADT D/C Disposition:Home, Routine, Self-Care Projected Discharge Date:03/24/2018 11:00 AM Transportation at D/C: Discharge Delay Reason: Follow-Up Date:03/24/2018 11:00 AM Discharge Slot: Final Diagnosis: Placement Information Referral Type:*Home Health Care Services Referral ID:[id number] Provider Name[facility] [address] [facility] [facility] [facility] Phone Number: Address 2: Fax Number: City:[place] Selection Factors: State:[place] Patient Contact Information Contact Name:ELEUTERIO Relationship:Son Address:[address] City:[place] Alternate Phone: State/Zip Code:[place] [address] Email: Financial Information Financial Class:Medicare Primary Plan Desc:MEDICARE INPATIENT Primary Plan Number:[id number] Secondary Plan Desc:[place] Secondary Plan Number:[id number] Assessment Information LACE LACE Length of stay for Answers: 1 day current admission Acuity / Level of Answers: Yes Care: Did the patient have an inpatient admission? Comorbidities - select Answers: Chronic pulmonary disease all that apply Diabetes (uncontrolled or controlled) History of falls Other Notes: obesity, htn, cardiac disease # of Emergency department Answers: 1-2 visits in the last 6 months Social determinants Answers: Mental health diagnosis (anxiety, depression, pers onality disorders, etc.) Score: 15 Date Signed: 03/24/2018 03:03 PM Electronically Signed By:Vivi Gutierres RN [facility] CM Progress Note CM Note CM Note Notes: CM reviewed chart for d/c planning/ Pt is a 67 y/o female with obesity, COPD, HTN, hyperlipidemia and depression. 2 days ago she fell while using her walker and broke multiple left ribs. She came to the ED due to SOB and left chest pain. PT/OT and rehab evals have been ordered. CM will follow for recommendations. D/C Plan: TBD Date Signed: 03/23/2018 01:29 PM Electronically Signed By:Sita Barrios Case Management Discharge Plan Note Case Management Discharge Discharge Order Complete? Answers: Yes Patient to Obtain Answers: Independently Medications Transportation Arranged Answers: Family/Friends Faxed Final Orders Answers: Yes Discharge Comments Notes: Patient discharged home with [facility] (RN/PT/OT). She will f/u w her PCP next week. Daughter in law to transport home. Date Signed: 03/24/2018 03:04 PM Electronically Signed By:Vivi Gutierres RN Intervention Information
--- NOTE | 2018-03-28 11:04 | PQFORM ---
PHYSICIAN QUERY FORM Needs Your Response This query form is being sent to you to assure this patient record is coded properly. Please respond to the question below: STRATEGIC ANALYST QUESTION: Dr Núñez Chart documentation mentions Flail Chest but this diagnosis is not mentioned in the Discharge Summary. Did this patient have Flail Chest ? __X_ Yes ___ No ___ Other (Please Specify ) ___ Undetermined Thank You Jovana VAZQUEZ Bleach Supervisor INSTRUCTIONS FOR RESPONSE: Answer question by clicking on the "Edit Document" button. Move cursor to area below the stars. When complete, hit "Save." Click on the "Sign" button, then click "Sign" again. Type in your PIN and hit "Enter." MTDD
--- NOTE | 2018-03-28 11:07 | PQFORM ---
PHYSICIAN QUERY FORM Needs Your Response This query form is being sent to you to assure this patient record is coded properly. Please respond to the question below: ACID BLOWER QUESTION: Dr Núñez Chart documentation mention Acute Respiratory Failure but there is no mention in the Discharge Summary. Did this patient have Acute Respiratory Failure ? ___ Yes __X_ No ___ Other (Please Specify ) ___ Unable to determine Thank You Jovana VAZQUEZ Dining Room Supervisor INSTRUCTIONS FOR RESPONSE: Answer question by clicking on the "Edit Document" button. Move cursor to area below the stars. When complete, hit "Save." Click on the "Sign" button, then click "Sign" again. Type in your PIN and hit "Enter." MTDD
== END 2018-03-24 18:09 | disposition home or self-care (01) | DRG 184 ==
LOC: F3N 13:08
PROVIDERS: ADMIT Surgery; ATTEND Surgery
DX: S22.5XXA Flail chest, initial encounter for closed fracture (principal); T79.7XXA Traumatic subcutaneous emphysema, initial encounter; S27.0XXA Traumatic pneumothorax, initial encounter; W19.XXXA Unspecified fall, initial encounter; I10 Essential (primary) hypertension; R59.0 Localized enlarged lymph nodes; E66.9 Obesity, unspecified; Z68.31 Body mass index [BMI] 31.0-31.9, adult; J44.9 Chronic obstructive pulmonary disease, unspecified; I25.10 Atherosclerotic heart disease of native coronary artery without angina pectoris; E78.5 Hyperlipidemia, unspecified; I25.2 Old myocardial infarction; Z98.1 Arthrodesis status; Z91.81 History of falling; Z87.891 Personal history of nicotine dependence
CPT/HCPCS: 82435-PO; 82565-PO; 82947-PO; 84132-PO; 84295-PO; 84520-PO; 85014-ER; 92523-GN; 96374; 97116-GP; 97162-GP; 97166-GO; 97535-GO; J1170; J1650; J1885; J3010; Q9967